=== PATIENT | female | born 1945 | race Caucasian/White ===

== ENCOUNTER → 2016-07-18 | Outpatient (CLI) | payer MEDICARE, OTHER ==
[~2016-07-18] MED LIST: ATEN100T88 PO; CITA20TA4 PO; LISI1TAB PO; LOVA20TA2 PO; SITA100T PO; SLMFT1E INH
--- OUTSIDE RECORDS SUMMARY | 2016-07-18 13:31 | XMS REPORT | Continuity of Care Document ---
Author Author Formerly [facility] Address Unknown Phone Unavailable Allergies Active Description Code Type Severity Reaction Onset Reported/Identified Relationship to Patient Clinical Status Yes PENICILLIN PENICILLIN Mild N/A 07/04/2012 Medications Problems Date Dx Coded Attending Type Code Diagnosis Diagnosed By 03/19/2013 RENAN CORBIN MISHEL Jones V04.81 FLU SHOT 09/29/2014 JEFFREY ELIZONDO EQUIPMENT TESTER Ot 959.7 09/29/2014 JEFFREY ELIZONDO EQUIPMENT TESTER Ot E849.6 09/29/2014 JEFFREY ELIZONDO EQUIPMENT TESTER Ot E888.9 10/16/2014 JEFFREY ELIZONDO EQUIPMENT TESTER Ot 959.7 10/16/2014 JEFFREY ELIZONDO EQUIPMENT TESTER Ot E849.6 10/16/2014 JEFFREY ELIZONDO EQUIPMENT TESTER Ot E888.9 10/22/2014 DOROTEO FLOWERS, MARI P Ot 836.0 10/22/2014 DOROTEO FLOWERS, MARI P Ot 844.1 10/22/2014 DOROTEO FLOWERS, MARI P Ot 924.11 10/22/2014 DOROTEO FLOWERS, MARI P Ot E000.8 10/22/2014 DOROTEO FLOWERS, MARI P Ot E885.9 10/25/2014 DOROTEO FLOWERS, MARI P Ot 836.0 10/25/2014 DOROTEO FLOWERS, MARI P Ot 844.1 10/25/2014 DOROTEO FLOWERS, MARI P Ot 924.11 10/25/2014 DOROTEO FLOWERS, MARI P Ot E000.8 10/25/2014 MARI SADLER MD Ot E885.9 Procedures Code Description Performed By Performed On G0008 FLU ADMINISTRATION (MEDICARE ONLY) 03/19/2013 Results Encounters ACCT No. Visit Date/Time Discharge Status Pt. Type Provider Facility Loc./Unit Complaint [id number] 03/19/2013 15:31:00 03/19/2013 23: 59:59 CLS Outpatient MISHEL URRUTIA DO
--- NOTE | 2016-07-18 15:12 | Diagnostic Imaging Report ---
PROCEDURE: MRI lumbar spine. TECHNIQUE: Multiplanar, multisequence MRI of the lumbar spine was performed without contrast. INDICATION: Back pain and left leg radiculopathy. FINDINGS: There is satisfactory alignment of the posterior spinal line. The vertebral body heights are preserved. There is multilevel bone marrow edema along the endplates of mid and lower lumbar spine levels reactive to disc disease with no suspicious marrow lesion identified. There is disc desiccation at all levels. There is slight disc height loss at L2/3 level. T12/L1: There is no significant disc herniation. No spinal canal or foraminal stenosis is seen. L1/2: There is a minimal disc bulge with no spinal canal or foraminal stenosis. There is mild facet hypertrophy. L2/3: There is a mild disc bulge and mild to moderate facet hypertrophy. There is no central canal, lateral recess or foraminal stenosis however. L3/L4: There is no disc herniation. There is moderate facet hypertrophy. No central canal, lateral recess or foraminal stenosis. L4/5: There is a disc bulge and moderate to severe facet arthropathy. There is central canal stenosis of mild to moderate degree reducing the AP dimension of the spinal canal to 8.6 mm. There is also lateral recess stenosis of moderate degree on the left side and minimal lateral recess stenosis on the right. The neural foramina demonstrate mild bilateral stenosis. L5/S1: There is a minimal disc bulge and mild to moderate facet arthropathy. No central canal stenosis. The lateral recess demonstrate mild stenosis on the left and no significant stenosis on the right side. The foramina demonstrate moderate to severe stenosis on the left and mild to moderate stenosis on the right side. IMPRESSION: Generally mild to moderate facet and disc degenerative changes most prominent in the lower lumbar spine. At L4/5 level, there is moderate left lateral recess stenosis and there is moderate to severe foraminal stenosis on the left at L5/S1. Other findings as above. Dictated by: Dictated on workstation # [id number]
== END ==
LOC: RAD 13:28
PROVIDERS: ATTEND Internal Medicine
DX: M54.16 Radiculopathy, lumbar region (principal)
CPT/HCPCS: 72148

== ENCOUNTER 2017-01-27 13:50 | Outpatient (RCR) | payer MEDICARE, OTHER | END 2017-01-27 14:44 | disposition home or self-care (01) | PROVIDERS: ATTEND Internal Medicine | DX: M54.5 Low back pain (principal); R53.83 Other fatigue ==

== ENCOUNTER → 2018-06-02 | Outpatient (CLI) | payer MEDICARE, OTHER ==
--- NOTE | 2018-06-02 13:48 | Diagnostic Imaging Report ---
INDICATION: Fall, rib injury, pain. COMPARISON: None. EXAMINATION: Three views of the right wrist were obtained. FINDINGS: No fracture or osseous lesion. There is no pneumothorax or effusion. IMPRESSION: Negative right rib series. Dictated by: Dictated on workstation # [id number]
--- NOTE | 2018-06-02 13:50 | Diagnostic Imaging Report ---
INDICATION: Fall. COMPARISON: None. EXAMINATION: Single view of the pelvis was obtained. FINDINGS: No fracture or dislocation. Articular surfaces are age-appropriate. No osseous lesion. IMPRESSION: No fracture identified. Dictated by: Dictated on workstation # [id number]
== END ==
LOC: RAD 12:19
PROVIDERS: ATTEND Internal Medicine
DX: S29.9XXA Unspecified injury of thorax, initial encounter (principal); S39.93XA Unspecified injury of pelvis, initial encounter; W19.XXXA Unspecified fall, initial encounter
CPT/HCPCS: 71100; 72170

== ENCOUNTER 2018-09-14 16:31 | Inpatient (IN) | payer MEDICARE, OTHER ==
[~2018-09-14] VITALS: Ht 160 cm; Wt 66.5 kg
--- NOTE | 2018-09-14 17:11 | ED Abdominal Pain ---
General Chief Complaint: Abdominal/GI Problems Stated Complaint: R SIDE PAIN Nursing Triage Note: Pt c/o R sided abdominal pain and vomiting after eating. Symptoms have persisted for three days. Pt reports last BM approximately two days ago. Sepsis Screen: No Definite Risk Source of Information: Patient Exam Limitations: No Limitations History of Present Illness Date Seen by Provider: September 14, 2018 Time Seen by Provider: 17:11 Initial Comments 72-year-old female who presents to the emergency room with complaints of generalized abdominal cramping, nausea, vomiting after eating for the past 3-4 days. She denies fevers, trouble urinating, abnormal bowel movements. She is a patient of Dr. Corado Timing/Duration: 3-4 Days Severity/Quality: Cramping Location: Generalized Abdomen Radiation: No Radiation Associated Symptoms: Nausea/Vomiting Allergies and Home Medications Allergies Uncoded Allergies: PENICILLIN (Allergy, Mild, 07/04/12) Home Medications Atenolol 100 Mg Tablet, 1 EACH PO DAILY, (Reported) Citalopram Hydrobromide 20 Mg Tablet, 20 MG PO DAILY, (Reported) Hctz/Lisinopril 1 Each Tablet, 1 EACH PO DAILY, (Reported) Lovastatin 20 Mg Tablet, 1 EACH PO DAILY WITH SUPPER, (Reported) Salmeterol Xinaf/Fluticasone 1 Diskus Inhp, 0 INH Q12HR, (Reported) 1 PUFF Sitagliptin Phosphate 100 Mg Tablet, 1 EACH PO DAILY, (Reported) Patient Home Medication List Home Medication List Reviewed: Yes Review of Systems Review of Systems Constitutional: see HPI; No chills, No fever Gastrointestinal: See HPI, Abdominal Pain, Nausea, Vomiting All Other Systems Reviewed Negative Unless Noted: Yes Past Pxwbebr-Wycrwq-Hgehpv Hx Past Med/Social Hx: Reviewed Nursing Past Med/Soc Hx Patient Social History Alcohol Use: Denies Use Recreational Drug Use: No Smoking Status: Never a Smoker 2nd Hand Smoke Exposure: No Recent Foreign Travel: No Contact w/Someone Who Travel: No Recent Infectious Disease Expo: No Recent Hopitalizations: No Past Medical History Surgeries: No Respiratory: Yes (ASTHMA) Asthma Cardiac: No Female Reproductive Disorders: Ovarian Cyst Genitourinary: Yes Gastrointestinal: No Musculoskeletal: No Endocrine: Yes HEENT: No Cancer: No Psychosocial: No Blood Disorders: No Adverse Reaction/Blood Tranf: No Family Medical History Reviewed Nursing Family Hx Physical Exam Vital Signs Vital Signs - First Documented 5/17/19 16:34 Temp 98.2 Pulse 83 Resp 18 B/P (MAP) 176/89 (118) Pulse Ox 99 O2 Delivery Simple Mask Capillary Refill : Less Than 3 Seconds Height/Weight/BMI Height: 5'3.00" Weight: 160lbs. oz. 72.527665wb; BMI Method:Stated General Appearance: WD/WN, no apparent distress Respiratory: chest non-tender, lungs clear, normal breath sounds, no respiratory distress, no accessory muscle use Cardiovascular: normal peripheral pulses, regular rate, rhythm, no edema, no gallop, no JVD, no murmur Gastrointestinal: normal bowel sounds, non tender, soft, no organomegaly, no pulsatile mass Extremities: normal capillary refill Neurologic/Psychiatric: alert, normal mood/affect, oriented x 3 Skin: normal color, warm/dry Progress/Results/Core Measures Results/Orders Lab Results Laboratory Tests Test 09/14/18 17:10 Range/Units White Blood Count 9.6 4.3-11.0 10^3/uL Red Blood Count 4.66 4.35-5.85 10^6/uL Hemoglobin 13.2 11.5-16.0 G/DL Hematocrit 38 35-52 % Mean Corpuscular Volume 82 80-99 FL Mean Corpuscular Hemoglobin 28 25-34 PG Mean Corpuscular Hemoglobin Concent 35 32-36 G/DL Red Cell Distribution Width 13.1 10.0-14.5 % Platelet Count 347 130-400 10^3/uL Mean Platelet Volume 11.0 H 7.4-10.4 FL Neutrophils (%) (Auto) 62 42-75 % Lymphocytes (%) (Auto) 22 12-44 % Monocytes (%) (Auto) 14 H 0-12 % Eosinophils (%) (Auto) 1 0-10 % Basophils (%) (Auto) 1 0-10 % Neutrophils # (Auto) 6.0 1.8-7.8 X 10^3 Lymphocytes # (Auto) 2.1 1.0-4.0 X 10^3 Monocytes # (Auto) 1.4 H 0.0-1.0 X 10^3 Eosinophils # (Auto) 0.1 0.0-0.3 10^3/uL Basophils # (Auto) 0.1 0.0-0.1 10^3/uL Urine Color YELLOW Urine Clarity CLEAR Urine pH 5 5-9 Urine Specific [place] 1.010 L 1.016-1.022 Urine Protein 3+ H NEGATIVE Urine Glucose (UA) 2+ H NEGATIVE Urine Ketones NEGATIVE NEGATIVE Urine Nitrite NEGATIVE NEGATIVE Urine Bilirubin NEGATIVE NEGATIVE Urine Urobilinogen NORMAL NORMAL MG/DL Urine Leukocyte Esterase 2+ H NEGATIVE Urine RBC (Auto) 1+ H NEGATIVE Urine RBC 0-2 /HPF Urine WBC 2-5 /HPF Urine Squamous Epithelial Cells 5-10 /HPF Urine Crystals NONE /LPF Urine Bacteria TRACE /HPF Urine Casts NONE /LPF Urine Mucus NEGATIVE /LPF Urine Culture Indicated NO Sodium Level 130 L 135-145 MMOL/L Potassium Level 2.8 L 3.6-5.0 MMOL/L Chloride Level 94 L 98-107 MMOL/L Carbon Dioxide Level 21 21-32 MMOL/L Anion Gap 15 H 5-14 MMOL/L Blood Urea Nitrogen 24 H 7-18 MG/DL Creatinine 2.55 H 0.60-1.30 MG/DL Estimat Glomerular Filtration Rate 19 BUN/Creatinine Ratio 9 Glucose Level 169 H 70-105 MG/DL Calcium Level 7.6 L 8.5-10.1 MG/DL Corrected Calcium 8.5-10.1 MG/DL Total Bilirubin 0.5 0.1-1.0 MG/DL Aspartate Amino Transf (AST/SGOT) 14 5-34 U/L Alanine Aminotransferase (ALT/SGPT) 8 0-55 U/L Alkaline Phosphatase 55 40-136 U/L Total Protein 7.5 6.4-8.2 GM/DL Albumin 4.6 H 3.2-4.5 GM/DL Amylase Level 78 25-125 U/L Lipase 57 8-78 U/L My Orders Orders - PHILIP FORDE Comprehensive Metabolic Panel (09/14/18 17:31) Lipase (09/14/18 17:31) Amylase (09/14/18 17:31) Ua Culture If Indicated (09/14/18 17:31) Ed Iv/Invasive Line Start (09/14/18 17:31) Cbc With Automated Diff (09/14/18 17:31) Ns Iv 1000 Ml (Sodium Chloride 0.9%) (09/14/18 18:30) Potassium Cl 10meq/50ml Ivpb (Kcl 10 Meq (5/17/19 18:30) Acute Abd Series (09/14/18 19:07) Medications Given in ED Current Medications Medications Dose Ordered Sig/Juliano Route Start Time Stop Time Status Last Admin Dose Admin Potassium Chloride 50 ml @ 50 mls/hr ONCE ONCE IV 09/14/18 18:30 09/14/18 19:29 DC 09/14/18 18:52 50 MLS/HR Vital Signs/I&O 09/14/18 16:34 Temp 98.2 Pulse 83 Resp 18 B/P (MAP) 176/89 (118) Pulse Ox 99 O2 Delivery Simple Mask Blood Pressure Mean: 118 Progress Progress Note : Time: 19:50 Progress Note I have discussed the case with Dr.Neuguin Morse corrugator operator helper at this time. He believes that given the patient's chronic kidney disease simple hydration and electrolyte replacement bring her back to her baseline. 20 005. I have discussed the case with Dr. Raines and she agrees to admit the patient to her services as an observation status. IV fluids at 100 mL an hour and repeat labs in the morning. Patient agrees with plan of care. Departure Communication (Admissions) Time/Spoke to Admitting Phy: 20:06 Dr. Raines Impression Primary Impression: Nausea and vomiting Additional Impressions: Chronic kidney disease Dehydration Disposition: ADMITTED INPATIENT Condition: Stable/Unchanged Admissions Decision to Admit Reason: Admit from ER (General) Decision to Admit/Date: September 14, 2018 Time/Decision to Admit Time: 20:08 Departure-Patient Inst. Referrals: SHANE CORADO DO (PCP/Family) Primary Care Physician PHILIP FORDE September 14, 2018 17:11
[2018-09-14 17:36] LABS: BASOPHILS # (AUTO) 0.1 10^3/uL (0.0-0.1); BASOPHILS % (AUTO) 1 % (0-10); EOSINOPHILS # (AUTO) 0.1 10^3/uL (0.0-0.3); EOSINOPHILS % (AUTO) 1 % (0-10); HEMATOCRIT 38 % (35-52); HEMOGLOBIN 13.2 G/DL (11.5-16.0); LYMPHOCYTES # (AUTO) 2.1 X 10^3 (1.0-4.0); LYMPHOCYTES % (AUTO) 22 % (12-44); MEAN CORPUSCULAR HEMOGLOBIN 28 PG (25-34); MEAN CORPUSCULAR HGB CONC 35 G/DL (32-36); MEAN CORPUSCULAR VOLUME 82 FL (80-99); MONOCYTES # (AUTO) 1.4 X 10^3 (0.0-1.0); MONOCYTES % (AUTO) 14 % (0-12); NEUTROPHILS % (AUTO) 62 % (42-75); PLATELET COUNT 347 10^3/uL (130-400); RED CELL DISTRIBUTION WIDTH 13.1 % (10.0-14.5); WHITE BLOOD COUNT 9.6 10^3/uL (4.3-11.0)
[2018-09-14 17:40] LABS: BILIRUBIN,URINE NEGATIVE (NEGATIVE); CLARITY,URINE CLEAR; COLOR,URINE YELLOW; GLUCOSE, URINE (UA) 2+ (NEGATIVE); KETONES,URINE NEGATIVE (NEGATIVE); LEUKOCYTE ESTERASE ,URINE 2+ (NEGATIVE); NITRITE,URINE NEGATIVE (NEGATIVE); PH,URINE 5 (5-9); PROTEIN,URINE 3+ (NEGATIVE); UROBILINOGEN,URINE NORMAL (NORMAL)
[2018-09-14 17:48] LABS: BACTERIA,URINE TRACE /HPF; RBC,URINE 0-2 /HPF
[2018-09-14 17:49] LABS: ALANINE AMINOTRANSFERASE 8 U/L (0-55); ALBUMIN 4.6 GM/DL (3.2-4.5); ALKALINE PHOSPHATASE 55 U/L (40-136); AMYLASE 78 U/L (25-125); BILIRUBIN,TOTAL 0.5 MG/DL (0.1-1.0); BUN/CREATININE RATIO 9; CALCIUM 7.6 MG/DL (8.5-10.1); CARBON DIOXIDE 21 MMOL/L (21-32); CHLORIDE 94 MMOL/L (98-107); CREATININE SERUM 2.55 MG/DL (0.60-1.30); GFR ESTIMATED 19; GLUCOSE 169 MG/DL (70-105); LIPASE 57 U/L (8-78); POTASSIUM 2.8 MMOL/L (3.6-5.0); SODIUM 130 MMOL/L (135-145); TOTAL PROTEIN 7.5 GM/DL (6.4-8.2)
[2018-09-14] MEDS ORDERED: NS IV 1000 ML 1,000 ML IV SCH (18:30)
[2018-09-14] MEDS ORDERED: POTASSIUM CL 10MEQ/50ML IVPB 50 ML IV ONE (18:30)
--- NOTE | 2018-09-14 19:47 | Diagnostic Imaging Report ---
INDICATION: Abdominal pain and vomiting. EXAMINATION: Four views of the abdomen were obtained. FINDINGS: The heart size is normal. Lungs are clear. There is no pleural effusion or pneumothorax. Bowel gas pattern is nonspecific. There is no free air. 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 There are no other abnormal abdominal calcifications IMPRESSION: 1. No acute cardiopulmonary abnormality. 2. Nonspecific bowel gas pattern. 3. Questionable calcified splenic artery aneurysm. Dictated by: Dictated on workstation # [id number]
[2018-09-14] MEDS ORDERED: KCL 20 MEQ TAB (K-DUR) PO ONE (20:15)
--- OUTSIDE RECORDS SUMMARY | 2018-09-14 20:25 | XMS REPORT | Clinical Summary ---
Author Author [facility] Address Unknown Phone Unavailable Care Team Providers Care Field Professional Name Role Phone PP Unavailable Allergies Not on File Medications Not on file Active Problems Not on file Social History Date Tobacco Use Types Packs/Day Years Used Never Assessed Sex Assigned at Date Recorded Not on file Industry Job Start Date Occupation Not on file Not on file Not on file Travel End Travel History Travel Start No recent travel history available. Plan of Treatment Health Maintenance Due Date Last Done Comments Hepatitis C Screening 1945 DTaP,Tdap,and Td Vaccines 1965 (1 - Tdap) Breast Cancer 1996 Screening-Mammogram Colon Cancer Screening 1996 Zoster Recombinant 1996 Vaccine (RZV,Shingrix) (1 of 2 - [facility] 2 Dose Standard) Pneumo-Adult (1 of 2 - 12/10/2011 PCV13) Influenza Vaccine (Season 12/30/2018 Ended) Results Not on filefrom Last 3 Months
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
[2018-09-14 20:54] VITALS: BP 152/74
--- NOTE | 2018-09-14 20:54 | NUR ---
SHIRAZ ÁLVAREZ admitted to room 422-1, with an admitting diagnosis of DEHDRATION, on 09/14/18 from ED via WHEELCHAIR, accompanied by STAFF.SHIRAZ ÁLVAREZ introduced to surroundings, call light, bed controls, phone, TV, temperature control, lights, meal times, smoking policy, visitor policy, side rail policy, bathrooms and showers. Patient Rights given to patient in the handbook. SHIRAZ ÁLVAREZ verbalizes understanding that [facility] is not responsible for the loss or damage to any personal effects or valuables that are kept in the patients posession during their hospitalization.
[2018-09-14] MEDS ORDERED: ONDANSETRON 4 MG/2 ML (SDV) Z0FRAN IV PRN (22:00)
--- NOTE | 2018-09-14 22:19 | NUR ---
PT DOESN'T HAVE AN UPDATED MEDICATION LIST.
[2018-09-14] MEDS: NS IV 1000 ML 1,000 ML IV SCH (22:49)
[2018-09-15] VITALS: BP 150/66
[2018-09-15 04:00] VITALS: BP 159/70
[2018-09-15 05:18] LABS: BASOPHILS # (AUTO) 0.1 10^3/uL (0.0-0.1); BASOPHILS % (AUTO) 1 % (0-10); EOSINOPHILS # (AUTO) 0.1 10^3/uL (0.0-0.3); EOSINOPHILS % (AUTO) 1 % (0-10); HEMATOCRIT 35 % (35-52); LYMPHOCYTES # (AUTO) 1.4 X 10^3 (1.0-4.0); LYMPHOCYTES % (AUTO) 21 % (12-44); MEAN CORPUSCULAR HEMOGLOBIN 28 PG (25-34); MEAN CORPUSCULAR HGB CONC 34 G/DL (32-36); MEAN CORPUSCULAR VOLUME 83 FL (80-99); MEAN PLATELET VOLUME 10.7 FL (7.4-10.4); MONOCYTES # (AUTO) 0.9 X 10^3 (0.0-1.0); MONOCYTES % (AUTO) 13 % (0-12); NEUTROPHILS # (AUTO) 4.3 X 10^3 (1.8-7.8); NEUTROPHILS % (AUTO) 64 % (42-75); PLATELET COUNT 267 10^3/uL (130-400); RED CELL DISTRIBUTION WIDTH 12.8 % (10.0-14.5); WHITE BLOOD COUNT 6.6 10^3/uL (4.3-11.0)
[2018-09-15 05:40] LABS: ALBUMIN 3.7 GM/DL (3.2-4.5); BILIRUBIN,TOTAL 0.5 MG/DL (0.1-1.0); CALCIUM 8.9 MG/DL (8.5-10.1); CREATININE SERUM 2.09 MG/DL (0.60-1.30); POTASSIUM 3.1 MMOL/L (3.6-5.0)
[2018-09-15] MEDS: NS IV 1000 ML 1,000 ML IV SCH ×2 (07:52→18:05)
[2018-09-15 08:00] VITALS: BP 154/70
[2018-09-15 12:00] VITALS: BP 179/69
--- NOTE | 2018-09-15 13:17 | History & Physical-Hospitalist ---
History of Present Illness HPI/Chief Complaint This is a 72-year-old white female who presents to the emergency room with a 2-3 day history of fatigue, nausea, and vomiting. Her GFR was found to be 19 and she appeared to be very fatigued and ill. Her case was discussed with the guest services coordinator on-call Lito who recommended IV fluids and observation. she says that she's feeling better this morning. She is a difficult historian. She denies specific complaints of pain. Source: patient Exam Limitations: other Date Seen 09/15/18 Time Seen by a Provider: 11:00 Attending Physician Ivet Raines MD PCP Morales Corado DO Referring Physician Date of Admission September 14, 2018 at 20:00 Home Medications & Allergies Home Medications Reviewed patient Home Medication Reconciliation performed by pharmacy medication reconciliations tower technician and/or nursing. Patients Allergies have been reviewed. Allergies Allergies Uncoded Allergies PENICILLIN ( Allergy, Mild, 07/04/12) Past Qwzbkji-Wcoolm-Exumlw Hx Past Med/Social Hx: Reviewed Nursing Past Med/Soc Hx Patient Social History Marrital Status: Employed/Student: retired Alcohol Use: Denies Use Recreational Drug Use: No Smoking Status: Never a Smoker 2nd Hand Smoke Exposure: No Recent Foreign Travel: No Contact w/other who traveled: No Recent Hopitalizations: No Recent Infectious Disease Expo: No Past Medical History : No Female Reproductive Disorders: Ovarian Cyst History of Blood Disorders: No Adverse Reaction to Blood Coles: No Family History Reviewed Nursing Family Hx Review of Systems Constitutional: see HPI Cardiovascular: no symptoms reported Gastrointestinal: nausea, vomiting Skin: no symptoms reported Psychiatric/Neurological: No Symptoms Reported Physical Exam Physical Exam Vital Signs Vital Signs - First Documented 09/14/18 16:34 Temp 98.2 Pulse 83 Resp 18 B/P (MAP) 176/89 (118) Pulse Ox 99 O2 Delivery Simple Mask Capillary Refill : Less Than 3 Seconds Height, Weight, BMI Height: 5'3.00" Weight: 146lbs. 9.0oz. [id number]; 26.0 BMI Method:Stated General Appearance: No Apparent Distress HEENT: Normal ENT Inspection Neck: Non Tender, Supple Respiratory: Chest Non Tender, Lungs Clear, Normal Breath Sounds, No Accessory Muscle Use, No Respiratory Distress Cardiovascular: Regular Rate, Rhythm, No Gallop, No Murmur Gastrointestinal: Normal Bowel Sounds, Non Tender, Soft Rectal: Deferred Back: Normal Inspection Extremity: Normal Capillary Refill, Normal Range of Motion, No Calf Tenderness Neurologic/Psychiatric: Alert, Oriented x3 Skin: Normal Color Results Results/Procedures Labs Laboratory Tests 09/14/18 17:10 09/15/18 05:03 Patient resulted labs reviewed. Assessment/Plan Admission Diagnosis Nausea and vomiting of uncertain etiology possible viral Acute renal failure Chronic renal failure stage IV kidney disease Hypokalemia Dehydration HTN Plan to admit for IV fluids and further evaluation Admission Status: Observation Diagnosis/Problems Diagnosis/Problems (1) Nausea and vomiting Status: Acute (2) Dehydration Status: Acute (3) Chronic kidney disease Status: Acute Qualifiers: Chronic kidney disease stage: stage 4 (severe) Qualified Codes: N18.4 - Chronic kidney disease, stage 4 (severe) Clinical Quality Measures DVT/VTE Risk/Contraindication: Risk Factor Score Per Nursin RFS Level Per Nursing on Admit: 3=High Copy Copies To 1: MORALES CORADO KATHLEEN M MD September 15, 2018 13:16
[2018-09-15 15:45] VITALS: BP 147/74
[2018-09-15 20:00] VITALS: BP 144/67
[2018-09-15] MEDS: RT-ADVAIR HFA 45/21 MCG PER PUFF IH SCH (20:23)
[2018-09-15] MEDS ORDERED: SIMvastatin 10 MG (ZOCOR) TAB PO SCH (21:00)
[2018-09-16] VITALS: BP 150/70
[2018-09-16] MEDS: NS IV 1000 ML 1,000 ML IV SCH (03:54)
[2018-09-16 04:00] VITALS: BP 177/70
[2018-09-16 05:24] LABS: BASOPHILS % (AUTO) 1 % (0-10); EOSINOPHILS # (AUTO) 0.1 10^3/uL (0.0-0.3); EOSINOPHILS % (AUTO) 2 % (0-10); HEMATOCRIT 37 % (35-52); HEMOGLOBIN 12.5 G/DL (11.5-16.0); LYMPHOCYTES # (AUTO) 1.3 X 10^3 (1.0-4.0); LYMPHOCYTES % (AUTO) 20 % (12-44); MEAN CORPUSCULAR HEMOGLOBIN 28 PG (25-34); MEAN CORPUSCULAR HGB CONC 34 G/DL (32-36); MEAN CORPUSCULAR VOLUME 83 FL (80-99); MEAN PLATELET VOLUME 10.9 FL (7.4-10.4); MONOCYTES # (AUTO) 0.9 X 10^3 (0.0-1.0); MONOCYTES % (AUTO) 14 % (0-12); NEUTROPHILS # (AUTO) 4.1 X 10^3 (1.8-7.8); NEUTROPHILS % (AUTO) 63 % (42-75); PLATELET COUNT 269 10^3/uL (130-400); WHITE BLOOD COUNT 6.5 10^3/uL (4.3-11.0)
[2018-09-16 05:47] LABS: ALBUMIN 3.6 GM/DL (3.2-4.5); BILIRUBIN,TOTAL 0.4 MG/DL (0.1-1.0); CALCIUM 8.9 MG/DL (8.5-10.1); CREATININE SERUM 1.79 MG/DL (0.60-1.30); TOTAL PROTEIN 5.8 GM/DL (6.4-8.2)
[2018-09-16] MEDS: RT-ADVAIR HFA 45/21 MCG PER PUFF IH SCH (06:45)
[2018-09-16 08:00] VITALS: BP 175/75
[2018-09-16] MEDS ORDERED: lisINopril 20 MG (PRINIVIL) TABLET PO SCH (09:00)
[2018-09-16] MEDS ORDERED: HYDROCHLOROTHIAZIDE 12.5 MG (HCTZ) CAP PO SCH (09:00)
[2018-09-16] MEDS ORDERED: ATENOLOL 50 MG (TENORMIN) TAB PO SCH (09:00)
--- NOTE | 2018-09-16 11:43 | Discharge Summary-Hospitalist ---
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 Hypokalemia Dehydration HTN Plan to admit for IV fluids and further evaluation Discharge Diagnosis Dehydration Nausea and vomiting Acute renal failure Chronic renal insufficiency Hypertension hypokalemia Hyperglycemia Monocytosis (1) Nausea and vomiting Status: Resolved (2) Dehydration Status: Resolved (3) Chronic kidney disease Status: Acute (4) Hypokalemia Status: Acute Discharge Summary Procedures/Consulations None Discharge Physical Exam Allergies: Uncoded Allergies: PENICILLIN (Allergy, Mild, 07/04/12) Vitals & I&Os Vital Signs Date Time Temp Pulse Resp B/P (MAP) Pulse Ox O2 Delivery O2 Flow Rate FiO2 09/16/18 08:42 Room Air 09/16/18 08:00 98.0 78 18 175/75 (108) 99 09/16/18 06:46 21 General Appearance: No Apparent Distress, WD/WN HEENT: Normal ENT Inspection, Pharynx Normal Respiratory: Chest Non Tender, Lungs Clear, Normal Breath Sounds, No Accessory Muscle Use, No Respiratory Distress Cardiovascular: Regular Rate, Rhythm, No Gallop, No Murmur Gastrointestinal: Normal Bowel Sounds, No Organomegaly, Non Tender, Soft Extremity: Normal Inspection, Normal Range of Motion, Non Tender, No Calf Tenderness, No Pedal Edema Skin: Normal Color, Warm/Dry Neurologic/Psychiatric: Alert, Oriented x3, No Motor/Sensory Deficits, Normal Mood/Affect, 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 She had aggressive fluid resuscitation with normal saline and her creatinine corrected down to almost 1.8. Potassium was replaced. The patient was eating and drinking normally and felt well at the time of discharge. She is counseled to follow-up with her special education itinerant teacher. In addition her blood sugars were running slightly elevated. Hemoglobin A1c is pending at the time of this discharge. In addition it was noted that she had a persistent monocytosis. UA showed proteinuria. Patient is advised to follow up with her special education itinerant teacher for repeat 24-hour urine for creatinine clearance and protein electrophoresis. Labs (last 24 hrs) Laboratory Tests 09/16/18 04:52: White Blood Count 6.5, Red Blood Count 4.42, Hemoglobin 12.5, Hematocrit 37, Mean Corpuscular Volume 83, Mean Corpuscular Hemoglobin 28, Mean Corpuscular Hemoglobin Concent 34, Red Cell Distribution Width 13.0, Platelet Count 269, Mean Platelet Volume 10.9H, Neutrophils (%) (Auto) 63, Lymphocytes (%) (Auto) 20, Monocytes (%) (Auto) 14H, Eosinophils (%) (Auto) 2, Basophils (%) (Auto) 1, Neutrophils # (Auto) 4.1, Lymphocytes # (Auto) 1.3, Monocytes # (Auto) 0.9, Eosinophils # (Auto) 0.1, Basophils # (Auto) 0.0, Sodium Level 140, Potassium L evel 3.0L, Chloride Level 108H, Carbon Dioxide Level 19L, Anion Gap 13, Blood Urea Nitrogen 17, Creatinine 1.79H, Estimat Glomerular Filtration Rate 28, BUN/Creatinine Ratio 9, Glucose Level 186H, Calcium Level 8.9, Corrected Calcium 9.2, Total Bilirubin 0.4, Aspartate Amino Transf (AST/SGOT) 12, Alanine Aminotransferase (ALT/SGPT) 8, Alkaline Phosphatase 43, Total Protein 5.8L, Albumin 3.6 Patient resulted labs reviewed. Pending Labs Laboratory Tests 09/16/18 04:52: White Blood Count 6.5, Red Blood Count 4.42, Hemoglobin 12.5, Hematocrit 37, Mean Corpuscular Volume 83, Mean Corpuscular Hemoglobin 28, Mean Corpuscular Hemoglobin Concent 34, Red Cell Distribution Width 13.0, Platelet Count 269, Mean Platelet Volume 10.9, Neutrophils (%) (Auto) 63, Lymphocytes (%) (Auto) 20, Monocytes (%) (Auto) 14, Eosinophils (%) (Auto) 2, Basophils (%) (Auto) 1, Neutrophils # (Auto) 4.1, Lymphocytes # (Auto) 1.3, Monocytes # (Auto) 0.9, Eosinophils # (Auto) 0.1, Basophils # (Auto) 0.0, Sodium Level 140, Potassium Level 3.0, Chloride Level 108, Carbon Dioxide Level 19, Anion Gap 13, Blood Urea Nitrogen 17, Creatinine 1.79, Estimat Glomerular Filtration Rate 28, BUN/Creatinine Ratio 9, Glucose Level 186, Calcium Level 8.9, Corrected Calcium 9.2, Total Bilirubin 0.4, Aspartate Amino Transf (AST/SGOT) 12, Alanine Aminotransferase (ALT/SGPT) 8, Alkaline Phosphatase 43, Total Protein 5.8, Albumin 3.6 Discussion & Recommendations Discharge Planning: <30 minutes discharge planning Discharge Home Medications: Active Scripts Active Reported Advair 100 Mcg/50 Mcg (Salmeterol Xinafoate/Fluticasone) 1 Diskus Inhp 0 INH Q12HR 1 PUFF Lovastatin 20 Mg (Lovastatin) 20 Mg Tablet 1 Each PO DAILY WITH SUPPER Lisinopril-Hctz 20-12.5 Mg Tab (HCTZ/Lisinopril) 1 Each Tablet 1 Each PO DAILY Tenormin 100 Mg (Atenolol) 100 Mg Tablet 1 Each PO DAILY Citalopram Hbr (Citalopram Hydrobromide) 20 Mg Tablet 20 Mg PO DAILY Januvia (Sitagliptin Phosphate) 100 Mg Tablet 1 Each PO DAILY Condition at discharge Stable Instructions to patient/family Please see electronic discharge instructions given to patient. Clinical Quality Measures DVT/VTE Risk/Contraindication: Risk Factor Score Per Nursin RFS Level Per Nursing on Admit: 3=High Copy Copies To 1: SHANE ELIZONDO DO Problem Qualifiers (1) Chronic kidney disease: Chronic kidney disease stage: stage 4 (severe) Qualified Codes: N18.4 - Chronic kidney disease, stage 4 (severe) MARSHA AQUINO MD September 16, 2018 11:43
[2018-09-16 12:00] VITALS: BP 187/72
[2018-09-16] MEDS ORDERED: KCL 20 MEQ TAB (K-DUR) PO SCH (12:00)
[2018-09-16 13:20] VITALS: BP 187/72
== END 2018-09-16 13:20 | disposition home or self-care (01) | DRG 641 ==
LOC: EDUNIT# 16:31 → ER 16:33 → 4TH 20:00 → UNDOADMOB 20:00 → 4TH 20:54 → INTOOBSV 09-15 16:21 → OBSVTOIN 09-15 16:21 → UNDODISIN 09-16 13:20
PROVIDERS: ADMIT Internal Medicine; ATTEND Internal Medicine
DX: E86.0 Dehydration (principal); B34.9 Viral infection, unspecified; I12.9 Hypertensive chronic kidney disease with stage 1 through stage 4 chronic kidney disease, or unspecified chronic kidney disease; N18.4 Chronic kidney disease, stage 4 (severe); N17.9 Acute kidney failure, unspecified; E87.6 Hypokalemia; R73.9 Hyperglycemia, unspecified; D72.821 Monocytosis (symptomatic); J45.909 Unspecified asthma, uncomplicated
CPT/HCPCS: 36415; 74022; 80053; 81000; 82150; 83036; 83690; 85025; 94640; 96361; 96365; G0378

== ENCOUNTER 2019-01-23 13:57 | Inpatient (IN) | payer MEDICARE, OTHER ==
[~2019-01-23] VITALS: Ht 157 cm; Wt 61.0 kg
[2019-01-23] MEDS ORDERED: NS IV 1000 ML 1,000 ML IV ONE (14:06)
--- NOTE | 2019-01-23 14:29 | ED General ---
General Chief Complaint: General Problems/Pain Stated Complaint: FEVER Nursing Triage Note: Pt to [facility] 5 with C/O RUQ abd pain, abnormal wt loss. Pt sent from Dr Freed office to get checked out. Nursing Sepsis Screen: No Definite Risk Source of Information: Patient Exam Limitations: No Limitations History of Present Illness Date Seen by Provider: Jan 23, 2019 Time Seen by Provider: 14:13 Initial Comments Here with report of right upper quadrant abdominal pain, weight loss, decreased appetite, decreased urination, reported fever at her doctor's office and overall not feeling well. Her doctor called to try to get direct admit but the admitting doctor for further she go through the emergency department due to concerns of history of chronic stage IV renal disease and history of GFR of 20. There is concerns about renal failure requiring dialysis due to reports of significant dehydration and tachycardia. She does arrive tachycardic. Apparently she did eat a little bit before coming and and is drinking okay. She states that she slipped in a room without her condition last night and that made her hot and not feel well. Does admit to the right upper quadrant abdominal pain that has been going on for some time. She has had difficulties over the last 10 weeks as her has been in the hospital. is out now on with her. They do report 30 pound weight loss over the last 5 weeks. Denies nausea or vomiting. Timing/Duration: Getting Worse, Other (5 weeks) Severity: Moderate Associated Systoms: No Chest Pain, No Cough, No Diaphoresis; Fever/Chills, Loss of Appetite; No Nausea/Vomiting, No Shortness of Air; Weakness Allergies and Home Medications Allergies Uncoded Allergies: PENICILLIN (Allergy, Mild, 07/04/12) Home Medications Atenolol 100 Mg Tablet, 1 EACH PO DAILY, (Reported) Citalopram Hydrobromide 20 Mg Tablet, 20 MG PO DAILY, (Reported) Hctz/Lisinopril 1 Each Tablet, 1 EACH PO DAILY, (Reported) Lovastatin 20 Mg Tablet, 1 EACH PO DAILY WITH SUPPER, (Reported) Salmeterol Xinaf/Fluticasone 1 Diskus Inhp, 0 INH Q12HR, (Reported) 1 PUFF Sitagliptin Phosphate 100 Mg Tablet, 1 EACH PO DAILY, (Reported) Patient Home Medication List Home Medication List Reviewed: Yes Review of Systems Review of Systems Constitutional: see HPI; No chills, No fever EENTM: no symptoms reported Respiratory: no symptoms reported Cardiovascular: no symptoms reported Gastrointestinal: see HPI, abdominal pain (RUQ), loss of appetite Genitourinary: see HPI, decreased output Musculoskeletal: No back pain; muscle weakness Skin: no symptoms reported Psychiatric/Neurological: See HPI; Denies Headache; Weakness All Other Systems Reviewed Negative Unless Noted: Yes Past Pgkxwhj-Qfbvgq-Navdxu Hx Past Med/Social Hx: Reviewed Nursing Past Med/Soc Hx Patient Social History Alcohol Use: Denies Use Recreational Drug Use: No Smoking Status: Never a Smoker 2nd Hand Smoke Exposure: No Recent Foreign Travel: No Contact w/Someone Who Travel: No Recent Infectious Disease Expo: No Recent Hopitalizations: No Physical Abuse: No Sexual Abuse: No Mistreated: No Fear: No Seasonal Allergies Seasonal Allergies: No Past Medical History Surgeries: No Respiratory: Yes (ASTHMA) Asthma Cardiac: No Neurological: No Female Reproductive Disorders: Ovarian Cyst Genitourinary: Yes Renal Failure Gastrointestinal: No Musculoskeletal: No Endocrine: Yes Diabetes, Insulin dep, Diabetes, Non-Insulin dep HEENT: No Cancer: No Psychosocial: No Integumentary: No Blood Disorders: No Adverse Reaction/Blood Tranf: No Physical Exam-Suspected Sepsis Physical Exam Vital Signs Vital Signs - First Documented 01/23/19 14:14 Temp 36.9 Pulse 109 Resp 19 B/P (MAP) 146/88 (107) Pulse Ox 99 O2 Delivery Room Air Capillary Refill : Less Than 3 Seconds Blood Pressure Mean: 107 Height, Weight, BMI Height: 5'3.00" Weight: 146lbs. 9.0oz. 66.751270yw; 23.00 BMI Method:Stated General Appearance: No Apparent Distress, Cachetic HEENT: PERRL/EOMI, Pharynx Normal Neck: Non Tender, Supple Respiratory: Lungs Clear, Normal Breath Sounds Cardiovascular: No Murmur, Tachycardia Gastrointestinal: Hepatomegaly, Tenderness (right upper quadrant) Back: Normal Inspection, No CVA Tenderness, No Vertebral Tenderness Extremity: Normal Range of Motion, Non Tender Neurologic/Psychiatric: Alert, Oriented x3 Skin: normal color, warm/dry Focused Exam Lactate Level 01/23/19 14:25: Lactic Acid Level 1.71 Lactic Acid Level Laboratory Tests Test 01/23/19 14:25 Lactic Acid Level 1.71 MMOL/L (0.50-2.00) Progress/Results/Core Measures Suspected Sepsis Recent Fever Within 48 Hours: No Infection Criteria Present: None New/Unexplained Altered Menta: No Sepsis Screen: No Definite Risk SIRS Temperature: Pulse: 109 Respiratory Rate: 19 Laboratory Tests 01/23/19 14:25: White Blood Count 6.5 Blood Pressure 146 /88 Mean: 107 01/23/19 14:25: Lactic Acid Level 1.71 Laboratory Tests 01/23/19 14:25: Creatinine 2.05H, INR Comment 1.0, Platelet Count 425H, Total Bilirubin 0.4 Results/Orders Lab Results Laboratory Tests Test 01/23/19 14:25 01/23/19 14:32 01/23/19 15:50 Range/Units White Blood Count 6.5 4.3-11.0 10^3/uL Red Blood Count 4.82 4.35-5.85 10^6/uL Hemoglobin 12.9 11.5-16.0 G/DL Hematocrit 41 35-52 % Mean Corpuscular Volume 84 80-99 FL Mean Corpuscular Hemoglobin 27 25-34 PG Mean Corpuscular Hemoglobin Concent 32 32-36 G/DL Red Cell Distribution Width 15.5 H 10.0-14.5 % Platelet Count 425 H 130-400 10^3/uL Mean Platelet Volume 10.9 H 7.4-10.4 FL Neutrophils (%) (Auto) 68 42-75 % Lymphocytes (%) (Auto) 19 12-44 % Monocytes (%) (Auto) 12 0-12 % Eosinophils (%) (Auto) 1 0-10 % Basophils (%) (Auto) 1 0-10 % Neutrophils # (Auto) 4.4 1.8-7.8 X 10^3 Lymphocytes # (Auto) 1.2 1.0-4.0 X 10^3 Monocytes # (Auto) 0.7 0.0-1.0 X 10^3 Eosinophils # (Auto) 0.1 0.0-0.3 10^3/uL Basophils # (Auto) 0.0 0.0-0.1 10^3/uL Prothrombin Time 13.7 12.2-14.7 SEC INR Comment 1.0 0.8-1.4 Activated Partial Thromboplast Time 27 24-35 SEC Sodium Level 135 135-145 MMOL/L Potassium Level 4.0 3.6-5.0 MMOL/L Chloride Level 100 98-107 MMOL/L Carbon Dioxide Level 21 21-32 MMOL/L Anion Gap 14 5-14 MMOL/L Blood Urea Nitrogen 32 H 7-18 MG/DL Creatinine 2.05 H 0.60-1.30 MG/DL Estimat Glomerular Filtration Rate 24 BUN/Creatinine Ratio 16 Glucose Level 184 H 70-105 MG/DL Lactic Acid Level 1.71 0.50-2.00 MMOL/L Calcium Level 9.7 8.5-10.1 MG/DL Corrected Calcium 9.8 8.5-10.1 MG/DL Total Bilirubin 0.4 0.1-1.0 MG/DL Aspartate Amino Transf (AST/SGOT) 14 5-34 U/L Alanine Aminotransferase (ALT/SGPT) 8 0-55 U/L Alkaline Phosphatase 51 40-136 U/L Total Protein 7.1 6.4-8.2 GM/DL Albumin 3.9 3.2-4.5 GM/DL Urine Color YELLOW Urine Clarity SLIGHTLY CLOUDY Urine pH 5 5-9 Urine Specific [place] 1.020 1.016-1.022 Urine Protein 3+ H NEGATIVE Urine Glucose (UA) NEGATIVE NEGATIVE Urine Ketones 1+ H NEGATIVE Urine Nitrite NEGATIVE NEGATIVE Urine Bilirubin NEGATIVE NEGATIVE Urine Urobilinogen NORMAL NORMAL MG/DL Urine Leukocyte Esterase 3+ H NEGATIVE Urine RBC (Auto) 1+ H NEGATIVE Urine RBC 2-5 H /HPF Urine WBC >100 H /HPF Urine Squamous Epithelial Cells 25-50 H /HPF Urine Crystals NONE /LPF Urine Bacteria MODERATE H /HPF Urine Casts PRESENT /LPF Urine Granular Casts 5-10 H /LPF Urine Mucus NEGATIVE /LPF Urine Culture Indicated CULTURE PENDING Ammonia 14 11-32 UMOL/L My Orders Orders - VAHID ABURTO MD Cbc With Automated Diff (01/23/19 14:06) Comprehensive Metabolic Panel (01/23/19 14:06) Blood Culture (01/23/19 14:06) Sputum Culture (01/23/19 14:06) Urinalysis (01/23/19 14:06) Urine Culture (01/23/19 14:06) Protime With Inr (01/23/19 14:06) Partial Thromboplastin Time (01/23/19 14:06) Chest 1 View, Ap/Pa Only (01/23/19 14:06) Ed Iv/Invasive Line Start (01/23/19 14:06) Ed Iv/Invasive Line Start (01/23/19 14:06) Vital Signs Adult Sepsis Patie Q15M (01/23/19 14:06) O2 (01/23/19 14:06) Remove Rings In Anticipation O (01/23/19 14:06) Lactic Acid Analyzer (01/23/19 14:06) Ed Iv/Invasive Line Start (01/23/19 14:06) Ns Iv 1000 Ml (Sodium Chloride 0.9%) (01/23/19 14:06) Ct Chest/Abdomen/Pelvis Wo (01/23/19 15:02) Ammonia (01/23/19 15:44) Ca 125 (01/23/19 16:41) Ceftriaxone For Iv Use (Rocephin For I (01/23/19 17:00) Medications Given in ED Current Medications Medications Dose Ordered Sig/Juliano Route Start Time Stop Time Status Last Admin Dose Admin Sodium Chloride 1,000 ml @ 0 mls/hr Q0M ONCE IV 01/23/19 14:06 01/23/19 14:07 DC 01/23/19 14:28 0 MLS/HR Vital Signs/I&O 01/23/19 14:14 Temp 36.9 Pulse 109 Resp 19 B/P (MAP) 146/88 (107) Pulse Ox 99 O2 Delivery Room Air Capillary Refill : Less Than 3 Seconds Blood Pressure Mean: 107 Progress Note : Progress Note Seen and evaluated. IV, labs, UA, chest x-ray, blood cultures and lactic acid ordered. Due to the noted hepatomegaly and recent weight loss, CT abdomen pelvis ordered. Due to stage IV kidney disease, this will be done without contrast. Normal saline 1 L bolus. Monitor patient. CT chest ordered after looking at the chest x-ray which was abnormal especially on the left. Monitor patient. 1547: I did discuss the case with Dr. Friedman after discussion with radiologist. Patient has what appears to be a large ovarian mass and cystic structure with significant abdominal ascites and large left pleural effusion and smaller right pleural effusion. Concerns for ovarian cancer. Dr. Friedman accepts patient for admission, inpatient status. She also has urinary tract infection with negative lactic acid so we will just treat with Rocephin and monitor this. I did discuss the case with Dr. Jerry at 1611 and he accepts patient for consult. Dr. Friedman is talked with Dr. Calvert. Patient will need thoracentesis as well as paracentesis. Dr. Jerry will work on the paracentesis. All findings and concerns were discussed with the patient and family who agree with admission. Rocephin 1 g IV ordered. I did talk with the patient and family for approximately 20 minutes regarding the diagnosis and also to discuss resuscitation status. At this time she would like to remain full code and the is aware. They are both also of the understanding that if she were to go into cardiac arrest and things did not look good, that is realistic in the approach regarding resuscitation and is not opposed to changing it as needed. Patient was in agreement. Admit, inpatient status. Patient and family agree with plan. Diagnostic Imaging Diagonstic Imaging: Xray Plain Films/CT/US/NM/MRI: chest Comments NAME: PREETISHIRAZ Talbert [facility] REC#: [id number] PT STATUS: REG ER : 1945 PHYSICIAN: VAHID ABURTO MD ADMIT DATE: 01/23/19/ER Signed Date of Exam: 01/23/19 CHEST 1 VIEW, AP/PA ONLY INDICATION: Right upper quadrant abdominal pain. TIME OF EXAM: 02:54 p.m. Correlation is made with prior chest from 09/14/2018. FINDINGS: The heart size is stable. Abnormal increased density in the left perihilar and left basilar region is noted. The right lung is clear. No pneumothorax is seen. IMPRESSION: Development of left perihilar and left basilar density since study from August. This may represent pneumonia and some associated basilar fluid. Follow-up after course of therapy is recommended to confirm clearing. Dictated by: Dictated on workstation # [id number] Dict: 01/23/19 1500 Trans: 01/23/19 1510 Interpreted by: NICOLETTE SMITH MD Electronically signed by: NICOLETTE SMITH MD 01/23/19 1510 Diagonstic Imaging: CT Plain Films/CT/US/NM/MRI: chest, abdomen, pelvis Comments [facility]. [place], [place] NAME: SHIRAZ ÁLVAREZ [facility] REC#: [id number] PT STATUS: REG ER : 1945 PHYSICIAN: VAHID ABURTO MD ADMIT DATE: 01/23/19/ER Draft Date of Exam:01/23/19 CT CHEST/ABDOMEN/PELVIS WO PROCEDURE: CT chest, abdomen, and pelvis without contrast. TECHNIQUE: Multiple contiguous axial images were obtained through the chest, abdomen, and pelvis without the use of intravenous contrast. Auto Exposure Controls were utilized during the CT exam to meet ALARA standards for radiation dose reduction. INDICATION: Abdominal pain. COMPARISON: There are no previous CT chest, abdomen and pelvis examinations available for comparison. FINDINGS: The plain film examination of the chest performed earlier today did note pneumonia/atelectasis and fluid involving the left lung base. On this exam there is indeed a large left pleural effusion. The effusion measures approximately 8.9 cm in maximum depth. There is also an effusion on the right measuring 3.6 cm in maximum depth. There is a small amount of associated atelectasis/infiltrate in each lower lobe again more so on the left. The lung apices are clear. The heart size is within normal limits. Coronary artery calcifications are noted. The aorta is not abnormally dilated. There is no obvious mediastinal or hilar adenopathy. The thyroid gland where visualized is generally unremarkable. There is no obvious breast mass. The images through the abdomen and pelvis show that there is a moderate to large amount of ascites. Furthermore the sections through the low pelvis do show that there is a 9.1 x 11.0 cm cystic mass with an associated 3.2 x 5.5 cm solid mass along its left lateral aspect. This appearance is worrisome for an ovarian neoplasm such as a cyst adenocarcinoma. There is no obvious omental caking but the ascites could also be related to the suspected ovarian neoplasm. The pleural effusions may also be sympathetic effusions. The urinary bladder is not well-distended and difficult to assess. The uterus is difficult to evaluate but is not enlarged. The appendix was not well-visualized but there are no indirect signs of acute appendicitis. The liver does not seem to be enlarged. The spleen is within normal limits. The suspected calcified splenic aneurysm seen on the acute abdomen series exam of 09/14/2018 is again visualized. The pancreas, the adrenals, the kidneys, the gallbladder, the aorta and the inferior vena cava show no sign of an acute abnormality. The stomach is partially filled with particulate matter and difficult to assess. The bone windows are unremarkable for a fracture or for a destructive lesion. IMPRESSION: 1. There is a large cystic mass with a solid component low in the pelvis near midline. This finding is worrisome for an ovarian neoplasm such as a cyst adenocarcinoma. There is also a large amount of ascites and bilateral pleural effusions particularly on the left. 2. There is some associated atelectasis/infiltrate in each lower lobe again more so on the left. 3. There is no acute abnormality noted otherwise. These results were discussed with Dr. Aburto in the ER. Dictated on workstation # [id number] Dict: 01/23/19 1528 Trans: 01/23/19 1550 [facility] [id number] Interpreted by: MARLEEN LINDA MD Electronically signed by: Departure Communication (Admissions) Time/Spoke to Admitting Phy: 15:47 Time/Spoke to Consulting Phy: 16:11 Impression Primary Impression: Ovarian mass Additional Impressions: Ascites Qualified Codes: R18.8 - Other ascites Bilateral pleural effusion Urinary tract infection Qualified Codes: N30.00 - Acute cystitis without hematuria Disposition: ADMITTED INPATIENT Condition: Stable Admissions Decision to Admit Reason: Admit from ER (General) Decision to Admit/Date: Jan 23, 2019 Time/Decision to Admit Time: 15:47 Departure-Patient Inst. Referrals: SHANE ELIZONDO DO (PCP/Family) Primary Care Physician VAHID ABURTO MD Jan 23, 2019 14:28
[2019-01-23 14:41] LABS: BASOPHILS % (AUTO) 1 % (0-10); EOSINOPHILS # (AUTO) 0.1 10^3/uL (0.0-0.3); EOSINOPHILS % (AUTO) 1 % (0-10); HEMATOCRIT 41 % (35-52); HEMOGLOBIN 12.9 G/DL (11.5-16.0); LYMPHOCYTES # (AUTO) 1.2 X 10^3 (1.0-4.0); LYMPHOCYTES % (AUTO) 19 % (12-44); MEAN CORPUSCULAR HEMOGLOBIN 27 PG (25-34); MEAN CORPUSCULAR HGB CONC 32 G/DL (32-36); MEAN CORPUSCULAR VOLUME 84 FL (80-99); MEAN PLATELET VOLUME 10.9 FL (7.4-10.4); MONOCYTES # (AUTO) 0.7 X 10^3 (0.0-1.0); MONOCYTES % (AUTO) 12 % (0-12); NEUTROPHILS # (AUTO) 4.4 X 10^3 (1.8-7.8); NEUTROPHILS % (AUTO) 68 % (42-75); PLATELET COUNT 425 10^3/uL (130-400); RED CELL DISTRIBUTION WIDTH 15.5 % (10.0-14.5); WHITE BLOOD COUNT 6.5 10^3/uL (4.3-11.0)
[2019-01-23 14:52] LABS: BILIRUBIN,URINE NEGATIVE (NEGATIVE); CLARITY,URINE SLIGHTLY CLOUDY; COLOR,URINE YELLOW; GLUCOSE, URINE (UA) NEGATIVE (NEGATIVE); KETONES,URINE 1+ (NEGATIVE); LEUKOCYTE ESTERASE ,URINE 3+ (NEGATIVE); NITRITE,URINE NEGATIVE (NEGATIVE); PH,URINE 5 (5-9); PROTEIN,URINE 3+ (NEGATIVE); UROBILINOGEN,URINE NORMAL (NORMAL)
[2019-01-23 14:55] LABS: PROTHROMBIN TIME PATIENT 13.7 SEC (12.2-14.7)
[2019-01-23 15:00] LABS: BACTERIA,URINE MODERATE /HPF; SQUAMOUS EPITHELIAL CELL,UR 25-50 /HPF; WBC,URINE >100 /HPF
[2019-01-23 15:06] LABS: ALBUMIN 3.9 GM/DL (3.2-4.5); BILIRUBIN,TOTAL 0.4 MG/DL (0.1-1.0); CALCIUM 9.7 MG/DL (8.5-10.1); CREATININE SERUM 2.05 MG/DL (0.60-1.30); TOTAL PROTEIN 7.1 GM/DL (6.4-8.2)
--- NOTE | 2019-01-23 15:08 | Diagnostic Imaging Report ---
INDICATION: Right upper quadrant abdominal pain. TIME OF EXAM: 02:54 p.m. Correlation is made with prior chest from 09/14/2018. FINDINGS: The heart size is stable. Abnormal increased density in the left perihilar and left basilar region is noted. The right lung is clear. No pneumothorax is seen. IMPRESSION: Development of left perihilar and left basilar density since study from August. This may represent pneumonia and some associated basilar fluid. Follow-up after course of therapy is recommended to confirm clearing. Dictated by: Dictated on workstation # [id number]
--- NOTE | 2019-01-23 15:51 | Diagnostic Imaging Report ---
PROCEDURE: CT chest, abdomen, and pelvis without contrast. TECHNIQUE: Multiple contiguous axial images were obtained through the chest, abdomen, and pelvis without the use of intravenous contrast. Auto Exposure Controls were utilized during the CT exam to meet ALARA standards for radiation dose reduction. INDICATION: Abdominal pain. COMPARISON: There are no previous CT chest, abdomen and pelvis examinations available for comparison. FINDINGS: The plain film examination of the chest performed earlier today did note pneumonia/atelectasis and fluid involving the left lung base. On this exam there is indeed a large left pleural effusion. The effusion measures approximately 8.9 cm in maximum depth. There is also an effusion on the right measuring 3.6 cm in maximum depth. There is a small amount of associated atelectasis/infiltrate in each lower lobe again more so on the left. The lung apices are clear. The heart size is within normal limits. Coronary artery calcifications are noted. The aorta is not abnormally dilated. There is no obvious mediastinal or hilar adenopathy. The thyroid gland where visualized is generally unremarkable. There is no obvious breast mass. The images through the abdomen and pelvis show that there is a moderate to large amount of ascites. Furthermore the sections through the low pelvis do show that there is a 9.1 x 11.0 cm cystic mass with an associated 3.2 x 5.5 cm solid mass along its left lateral aspect. This appearance is worrisome for an ovarian neoplasm such as a cyst adenocarcinoma. There is no obvious omental caking but the ascites could also be related to the suspected ovarian neoplasm. The pleural effusions may also be sympathetic effusions. The urinary bladder is not well-distended and difficult to assess. The uterus is difficult to evaluate but is not enlarged. The appendix was not well-visualized but there are no indirect signs of acute appendicitis. The liver does not seem to be enlarged. The spleen is within normal limits. The suspected calcified splenic aneurysm seen on the acute abdomen series exam of 09/14/2018 is again visualized. The pancreas, the adrenals, the kidneys, the gallbladder, the aorta and the inferior vena cava show no sign of an acute abnormality. The stomach is partially filled with particulate matter and difficult to assess. The bone windows are unremarkable for a fracture or for a destructive lesion. IMPRESSION: 1. There is a large cystic mass with a solid component low in the pelvis near midline. This finding is worrisome for an ovarian neoplasm such as a cystadenocarcinoma. There is also a large amount of ascites and bilateral pleural effusions particularly on the left. 2. There is some associated atelectasis/infiltrate in each lower lobe again more so on the left. 3. There is no acute abnormality noted otherwise. These results were discussed with Dr. Medina in the ER. Dictated by: Dictated on workstation # [id number]
[2019-01-23] MEDS ORDERED: cefTRIAXone FOR IV USE 1,000 MG in WATER (STERILE) FOR INJECTION 10 ML IV ONE (17:00)
--- NOTE | 2019-01-23 17:27 | NUR ---
This RN attempted report to Berenice RN room 414 however she is requesting to call me back. Also this RN was made aware the room was still dirty and they were waiting on housekeeping.
--- NOTE | 2019-01-23 17:38 | NUR ---
Report given to MENA Ng
--- NOTE | 2019-01-23 17:43 | NUR ---
Dr. Jerry in with the pt at this time and is going to perform a paracentesis. Floor RN made aware.
--- NOTE | 2019-01-23 17:55 | CONSULTATION REPORT ---
DATE OF SERVICE: 01/23/2019 ATTENDING PRIMARY CARE PHYSICIAN: Morales Corado DO. HISTORY OF PRESENT ILLNESS: The patient is a 73-year-old female who has had pain in the right upper abdominal quadrant; however, is also noticed anorexia and weight loss over the past 3 months. She was directed to go to the Emergency Department due to these symptoms as well as a known history of stage IV chronic kidney disease with an estimated GFR of 20. She has had abdominal distention and discomfort throughout the abdomen; however, not severe. She does not report any nausea or vomiting as well as no red blood per rectum nor any dark tarry stools. A CT scan was performed, which did show ascites as well as a large mass of the left adnexa concerning for neoplasm. PAST MEDICAL HISTORY: Hypertension, asthma, renal failure, and diabetes. PAST SURGICAL HISTORY: None. ALLERGIES: PENICILLIN. MEDICATIONS: Atenolol 100 mg daily, citalopram 20 mg daily, hydrochlorothiazide and lisinopril 1 daily, lovastatin 20 mg daily, sitagliptin 100 mg daily, salmeterol and fluticasone Diskus q.12 hours SOCIAL HISTORY: Negative smoke, negative alcohol. FAMILY HISTORY: Noncontributory. Vital signs - temperature is 36.9, blood pressure 146/88, pulse 109, respirations 19, and pulse ox 99% on room air. REVIEW OF SYSTEMS: This is a well-nourished female, currently guarded secondary to the abdominal discomfort. She is experiencing some shortness of breath as well. No cough or sputum production. No nausea or vomiting, no diarrhea or constipation, no red blood per rectum, no dark tarry stools. No fever or chills, with a recent weight loss in the past 3 months. All other review of systems is negative. PHYSICAL EXAMINATION: CHEST: Decreased breath sounds in the left lung base. HEART: Regular, no murmurs. EXTREMITIES: Bilateral lower extremity edema +1/3. Negative Homans sign. HEENT: No scleral icterus. NECK: No cervical lymphadenopathy. ABDOMEN: Distended with a positive fluid shift wave, no peritoneal signs. SKIN: Warm, dry. LABORATORY DATA: WBC is 6.4, hemoglobin 12.9, hematocrit 41, and platelets 425. BUN is 32, creatinine 2.05. ASSESSMENT AND PLAN: A 73-year-old female with ascites with left adnexal mass concerning for neoplasm as well as pleural effusion. We will proceed with paracentesis for diagnostic as well as therapeutic paracentesis on this admission. Job ID: [id number] DocumentID: [id number] Dictated Date: 01/23/2019 17:17:56 Package Center Supervisor Date: 01/23/2019 17:54:34 Dictated By: MAHENDRA GILBERT MD
--- NOTE | 2019-01-23 18:28 | NUR ---
SHIRAZ ÁLVAREZ admitted to room 414-1, with an admitting diagnosis of OVARIAN MASSM ABD ASCITES, BILAT PLEURAL EFFUSION , on 01/23/19 from ER via CART, accompanied by ICU STAFF.SHIRAZ ÁLVAREZ introduced to surroundings, call light, bed controls, phone, TV, temperature control, lights, meal times, smoking policy, visitor policy, side rail policy, bathrooms and showers. Patient Rights given to patient in the handbook. SHIRAZ ÁLVAREZ verbalizes understanding that [facility] is not responsible for the loss or damage to any personal effects or valuables that are kept in the patients posession during their hospitalization. SHIRAZ ÁLVAREZ verbalizes understanding of Interdisciplinary Patient Education. Patient and/or family were informed about the Rapid Response Team and its purpose.
[2019-01-23] MEDS ORDERED: CATHETER FLUSH 10 ML SYR IV PRN (18:30)
[2019-01-23] MEDS: NS IV 1000 ML 1,000 ML IV SCH (18:41)
[2019-01-23 20:00] VITALS: BP 148/82
[2019-01-23] MEDS: inSUlin ASPART (NovoLOG) 1 UNIT/0.01 ML (CHARGE PER UNIT) SC SCH (22:23)
[2019-01-23 22:25] VITALS: BP 148/82
[2019-01-24] VITALS: BP 146/79
--- NOTE | 2019-01-24 02:50 | OPERATIVE REPORT ---
DATE OF SERVICE: 01/23/2019 ATTENDING PRIMARY CARE PHYSICIAN: Morales Corado D.O. PREPROCEDURE DIAGNOSES: Ascites, weakness, weight loss, large left adnexal mass. POSTOPERATIVE DIAGNOSES: Ascites, weakness, weight loss, large left adnexal mass. PROCEDURE: Paracentesis. SURGEON: Mahendra Gilbert M.D. ANESTHESIA: Local. ESTIMATED BLOOD LOSS: Minimal. FINDINGS: Straw yellow transudative fluid. DISPOSITION: The patient tolerated the procedure well. INDICATIONS: The patient is a 73-year-old female, who presented with pain in the right upper abdominal quadrant; however, she has also noted anorexia and weight loss over the past 3 months. She was directed to go to the Emergency Department due to these symptoms as well as known history of stage IV chronic kidney disease with an estimated GFR of 20. She has had abdominal distention and discomfort throughout the abdomen for the past several weeks, however, not severe. She does not report any nausea, no vomiting as well as no red blood per rectum nor any dark tarry stools. A CT scan was performed, which did show ascites as well as a large mass of the left adnexa concerning for neoplasm. DESCRIPTION OF PROCEDURE: The abdomen was prepped and draped in standard surgical fashion. 1% lidocaine was used to anesthetize the right lateral abdomen including the skin, subcutaneous tissue, muscle layers as well as the peritoneal lining. A vertical skin incision was made using an 11 blade and the trocar and catheter were then inserted withdrawing of straw yellow transudative fluid. The catheter was then advanced over the trocar without any resistance. The catheter was then placed to tubing and gravity drainage bag. The catheter was then covered with gauze followed by Op-Site. The patient tolerated the procedure well. We will keep the catheter in for approximately 24 hours or until asymptomatic and then remove the catheter. We will also send the fluid off for analysis as well as cytology due to concerns of a potential malignant ascites. Job ID: [id number] DocumentID: [id number] Dictated Date: 01/23/2019 19:48:30 Marine Operations Coordinator Date: 01/24/2019 02:49:09 Dictated By: MAHENDRA GILBERT MD
[2019-01-24 04:15] VITALS: BP 136/78
[2019-01-24 05:01] LABS: BASOPHILS # (AUTO) 0.1 10^3/uL (0.0-0.1); BASOPHILS % (AUTO) 1 % (0-10); EOSINOPHILS # (AUTO) 0.2 10^3/uL (0.0-0.3); EOSINOPHILS % (AUTO) 3 % (0-10); HEMATOCRIT 40 % (35-52); HEMOGLOBIN 12.6 G/DL (11.5-16.0); LYMPHOCYTES # (AUTO) 1.7 X 10^3 (1.0-4.0); LYMPHOCYTES % (AUTO) 24 % (12-44); MEAN CORPUSCULAR HEMOGLOBIN 26 PG (25-34); MEAN CORPUSCULAR HGB CONC 32 G/DL (32-36); MEAN CORPUSCULAR VOLUME 83 FL (80-99); MEAN PLATELET VOLUME 10.7 FL (7.4-10.4); MONOCYTES # (AUTO) 0.9 X 10^3 (0.0-1.0); MONOCYTES % (AUTO) 13 % (0-12); NEUTROPHILS # (AUTO) 4.1 X 10^3 (1.8-7.8); NEUTROPHILS % (AUTO) 59 % (42-75); PLATELET COUNT 436 10^3/uL (130-400); RED CELL DISTRIBUTION WIDTH 15.9 % (10.0-14.5); WHITE BLOOD COUNT 6.9 10^3/uL (4.3-11.0)
[2019-01-24 05:26] LABS: ALANINE AMINOTRANSFERASE < 6 U/L (0-55); ALBUMIN 3.3 GM/DL (3.2-4.5); ALKALINE PHOSPHATASE 51 U/L (40-136); BILIRUBIN,TOTAL 0.3 MG/DL (0.1-1.0); BUN/CREATININE RATIO 13; CALCIUM 9.1 MG/DL (8.5-10.1); CARBON DIOXIDE 22 MMOL/L (21-32); CHLORIDE 105 MMOL/L (98-107); CREATININE SERUM 2.04 MG/DL (0.60-1.30); GFR ESTIMATED 24; GLUCOSE 138 MG/DL (70-105); POTASSIUM 3.9 MMOL/L (3.6-5.0); SODIUM 138 MMOL/L (135-145)
[2019-01-24] MEDS: inSUlin ASPART (NovoLOG) 1 UNIT/0.01 ML (CHARGE PER UNIT) SC SCH ×4 (05:45→20:58)
--- NOTE | 2019-01-24 07:07 | Pulmonary Consultation ---
MADELIN CHERY,MED STUDENT 01/24/19 0707: History of Present Illness History of Present Illness Date of Consultation 01/24/19 06:34 Time Seen by Provider: 06:35 Date of Admission Reason for Visit: Abdominal pain, CKD, fever History of Present Illness Patient presented to the ER 2days ago with RUQ abdominal, weight loss, decreased appetite, decreased urination, and reported fever and malaise lasting for 1month to her PCP Dr. Corado. Patient has a history of stage 4 CKD and GFR of 20. Denies smoking hx and heart disease, admits to chronic second smoke exposure and NIDDMII and a cyst on one of her ovarians. Patient is down 30 pounds in the last 5wks. Patient goes on tangents when asked open ended questions making is difficult to get a detailed history ROS - admits chills, chest tightness, abdominal pain - denies fever, headache, nausea, vomiting, chest pain, SOB, cough changes in vision, changes in hearing, numbness, tingling Allergies and Home Medications Allergies Coded Allergies: Penicillins (Unverified Allergy, Unknown, 01/24/19) Home Medications Amlodipine Besylate 10 Mg Tablet, 10 MG PO DAILY, (Reported) Atenolol 100 Mg Tablet, 100 MG PO DAILY, (Reported) LAST FILLED #90 07-03-18 Biotin 5 Mg Tablet, 5 MG PO DAILY, (Reported) Cholecalciferol (Vitamin D3) 2,000 Unit Capsule, 2,000 UNIT PO DAILY, (Reported) Cyanocobalamin (Vitamin B-12) 500 Mcg Tab.subl, 1,500 MCG SL DAILY, (Reported) Fluticasone Propionate 16 Gm [place].susp, 2 SPRAYS NS DAILY, (Reported) Fluticasone/Salmeterol 1 Each Blst.w.dev, 1 PUFF INH BID, (Reported) Gabapentin 100 Mg Capsule, 100 MG PO BID, (Reported) LAST FILLED #60 07-16-18 Ginkgo Biloba 40 Mg Capsule, 80 MG PO DAILY, (Reported) Insulin Aspart 300 Units/3 Ml Solution, 5 UNITS SC TIDAC, (Reported) LAST FILLED 08-16-18 Insulin Detemir 100 Unit/1 Ml Insuln.pen, 23 UNITS SC HS, (Reported) LAST FILLED 10-29-18 Lovastatin 20 Mg Tablet, 20 MG PO HS, (Reported) Turmeric/Turmeric Root Extract 1 Each Capsule, 450 MG PO DAILY, (Reported) Past Snpnhsr-Qpizrx-Hvzwml Hx Past Med/Social Hx: Reviewed Nursing Past Med/Soc Hx Patient Social History Alcohol Use: Denies Use Recreational Drug Use: No Smoking Status: Never a Smoker 2nd Hand Smoke Exposure: No Recent Foreign Travel: No Contact w/Someone Who Travel: No Recent Infectious Disease Expo: No Recent Hopitalizations: No Physical Abuse: No Sexual Abuse: No Mistreated: No Fear: No Seasonal Allergies Seasonal Allergies: No Past Medical History Surgeries: No Respiratory: Yes (ASTHMA) Asthma Cardiac: No Neurological: No Female Reproductive Disorders: Ovarian Cyst Genitourinary: Yes Renal Failure Gastrointestinal: No Musculoskeletal: No Endocrine: Yes Diabetes, Insulin dep, Diabetes, Non-Insulin dep HEENT: No Cancer: No Psychosocial: No Integumentary: No Blood Disorders: No Adverse Reaction/Blood Tranf: No Review of Systems Constitutional: Chills, Weakness, Malaise; No: Fever Eyes: No: Pain, Vision change ENT: No: Ear pain Respiratory: No: Cough, Dry, Shortness of breath, SOB with excertion, Wheezing, Hemoptysis Gastrointestinal: Abdominal Pain; No: Nausea, Vomiting Sepsis Event Evaluation Height, Weight, BMI Height: 5'3.00" Weight: 146lbs. 9.0oz. 66.137061tt; 24.74 BMI Method:Stated Exam Exam Vital Signs Date Time Temp Pulse Resp B/P (MAP) Pulse Ox O2 Delivery O2 Flow Rate FiO2 01/24/19 04:15 36.5 101 20 136/78 (97) 94 Room Air 01/24/19 00:00 36.7 104 18 146/79 (101) 95 Room Air 01/23/19 22:25 37.2 108 20 148/82 98 Room Air 01/23/19 20:00 Room Air 01/23/19 20:00 37.2 108 20 148/82 (104) 98 Room Air 01/23/19 18:21 96 Room Air 01/23/19 18:08 36.6 106 18 177/126 96 01/23/19 14:14 36.9 109 19 146/88 (107) 99 Room Air I & O 01/24/19 07:00 Intake Total 1520 ml Output Total 5000 ml Balance -3480 ml Height & Weight Height: 5'3.00" Weight: 146lbs. 9.0oz. 66.423092sk; 24.74 BMI Method:Stated General Appearance: No Apparent Distress, Anxious, Chronically ill, Cachetic HEENT: PERRL/EOMI Neck: Non Tender, Supple Respiratory: Chest Non Tender, Lungs Clear, Normal Breath Sounds, No Accessory Muscle Use, No Respiratory Distress Cardiovascular: Regular Rate, Rhythm, No Edema, No Gallop, No JVD, No Murmur, Normal Peripheral Pulses, Tachycardia Capillary Refill: Less Than 3 Seconds Peripheral Pulses: 2+ Dorsalis Pedis (R), 2+ Left Dors-Pedis (L), 2+ Radial Pulses (R), 2+ Radial Pulses (L) Gastrointestinal: no pulsatile mass, mass (hard nodular texture across breadth abdomen) Extremity: Normal Range of Motion, Non Tender Neurologic/Psychiatric: Alert, Oriented x3, No Motor/Sensory Deficits, Normal Mood/Affect Skin: Normal Color, Warm/Dry Lymphatic: Other (possible L supraclavicle node enlagement ) Results Lab Laboratory Tests 01/23/19 14:25 01/24/19 04:30 Assessment/Plan Assessment/Plan B/l pleural effusion L>R - Thoracentesis is planned for today - CBC w/ diff, cytology, LDH, protein, gram stain and cultures, glucose, CEA, CA125, C19-9, Atelectasis - IS CKD stage 4 w/ GFR of 24 - management per primary Recent weight loss of 30lbs in 5wks - suspicious for cancer - midline Ovarian mass see on CT NIDDMII - management per primary suspected UTI - management per primary URMILA CHRISTIAN DO 01/29/19 1412: Allergies and Home Medications Allergies Coded Allergies: Penicillins (Unverified Allergy, Unknown, 01/24/19) Home Medications Amlodipine Besylate 10 Mg Tablet, 10 MG PO DAILY, (Reported) Atenolol 100 Mg Tablet, 100 MG PO DAILY, (Reported) LAST FILLED #90 07-03-18 Biotin 5 Mg Tablet, 5 MG PO DAILY, (Reported) Cholecalciferol (Vitamin D3) 2,000 Unit Capsule, 2,000 UNIT PO DAILY, (Reported) Cyanocobalamin (Vitamin B-12) 500 Mcg Tab.subl, 1,500 MCG SL DAILY, (Reported) Fluticasone Propionate 16 Gm [place].susp, 2 SPRAYS NS DAILY, (Reported) Fluticasone/Salmeterol 1 Each Blst.w.dev, 1 PUFF INH BID, (Reported) Gabapentin 100 Mg Capsule, 100 MG PO BID, (Reported) LAST FILLED #60 07-16-18 Ginkgo Biloba 40 Mg Capsule, 80 MG PO DAILY, (Reported) Insulin Aspart 300 Units/3 Ml Solution, 5 UNITS SC TIDAC, (Reported) LAST FILLED 08-16-18 Insulin Detemir 100 Unit/1 Ml Insuln.pen, 23 UNITS SC HS, (Reported) LAST FILLED 10-29-18 Lovastatin 20 Mg Tablet, 20 MG PO HS, (Reported) Turmeric/Turmeric Root Extract 1 Each Capsule, 450 MG PO DAILY, (Reported) Review of Systems Time Seen by Provider: 14:13 Exam Exam General Appearance: No Apparent Distress, Anxious, Chronically ill, Cachetic HEENT: PERRL/EOMI Neck: Non Tender, Supple Respiratory: Chest Non Tender, Lungs Clear, Normal Breath Sounds, No Accessory Muscle Use, No Respiratory Distress Cardiovascular: Regular Rate, Rhythm, No Edema, No Gallop, No JVD, No Murmur, Normal Peripheral Pulses Capillary Refill: Less Than 3 Seconds Gastrointestinal: no pulsatile mass, mass (hard nodular texture across breadth abdomen) Extremity: Normal Range of Motion, Non Tender Neurologic/Psychiatric: Alert, No Motor/Sensory Deficits, Normal Mood/Affect Skin: Normal Color, Warm/Dry Assessment/Plan Assessment/Plan B/l pleural effusion L>R - Thoracentesis Atelectasis - IS CKD stage 4 w/ GFR of 24 - management per primary Recent weight loss of 30lbs in 5wks - suspicious for cancer - midline Ovarian mass see on CT NIDDMII - management per primary suspected UTI - management per primary MADELIN CHERY,MED STUDENT Jan 24, 2019 07:07 URMILA CHRISTIAN DO Jan 29, 2019 14:12
[2019-01-24 08:00] VITALS: BP 145/83
--- NOTE | 2019-01-24 08:01 | NUR ---
RELEASE OF RECORDS CONSENT SENT TO [facility].
--- NOTE | 2019-01-24 08:08 | History & Physical-Hospitalist ---
History of Present Illness HPI/Chief Complaint Pt is a 73yoCF with a PMH CKD Stage 4, HTN. and NIDDMII who presented to the ER due to weakness and dehydration from Dr Corado's office. She is a poor historian and knows that she is in the hospital but not able to tell me many other details. I did speak with her PCP yesterday who states that her has just returned home after a lengthy 6 month hospital and patient's health in that time has deteriorated. She has lost over 30lbs (most of that being in the last 5 weeks) and was delusional in his office yesterday. She appeared clinically dry and was referred to the ER for evaluation. She was found to have a UTI on arrival to the ER and due eto abdominal pain a CT of her abdomen was ordered which revealed large volume ascites and an ovarian mass concerning for neoplasm. She was also noted to have bilateral pleural effusions L>R. She was admitted and paracentesis was done yesterday evening by Dr Jerry. This morning Dr Calvert plan to do a thoracentesis. I attempted to discuss the concerns about the ovarian mass with the patient and she responded by sayings she knew she had a mass but "I'm done having babies so never worried about it." She states she was informed of this by her key maker at [place]. Source: patient Date Seen 01/24/19 Time Seen by a Provider: 07:53 Attending Physician Giovanny Friedman MD PCP Morales Corado DO Referring Physician Date of Admission Jan 23, 2019 at 4:57 pm Home Medications & Allergies Home Medications Reviewed patient Home Medication Reconciliation performed by pharmacy medication reconciliations fabrication technician and/or nursing. Patients Allergies have been reviewed. Allergies Allergies Coded Allergies Penicillins (Unverified Allergy, Unknown, 01/24/19) Past Xkqsdyo-Turbim-Dehmca Hx Past Med/Social Hx: Reviewed Nursing Past Med/Soc Hx Patient Social History Marrital Status: Employed/Student: retired Alcohol Use: Denies Use Recreational Drug Use: No Smoking Status: Never a Smoker 2nd Hand Smoke Exposure: No Physical Abuse Screen: No Sexual Abuse: No Recent Foreign Travel: No Contact w/other who traveled: No Recent Hopitalizations: No Recent Infectious Disease Expo: No Seasonal Allergies Seasonal Allergies: No Past Medical History Respiratory: COPD Cardiac: Hypertension Female Reproductive Disorders: Ovarian Cyst Genitourinary: Renal Failure Endocrine: Diabetes, Insulin dep History of Blood Disorders: No Adverse Reaction to Blood Coles: No Family History Reviewed Nursing Family Hx No Pertinent Family Hx Review of Systems ROS-Unable to Obtain: limited by dementia Constitutional: see HPI Physical Exam Physical Exam Vital Signs Vital Signs - First Documented 01/23/19 14:14 Temp 36.9 Pulse 109 Resp 19 B/P (MAP) 146/88 (107) Pulse Ox 99 O2 Delivery Room Air Capillary Refill : Less Than 3 Seconds Height, Weight, BMI Height: 5'3.00" Weight: 146lbs. 9.0oz. 66.586096kf; 24.74 BMI Method:Stated General Appearance: No Apparent Distress, Chronically ill, Thin HEENT: Moist Mucous Membranes; No Scleral Icterus (L), No Scleral Icterus (R) Neck: Normal Inspection, Supple; No Thyromegaly Respiratory: Lungs Clear, No Accessory Muscle Use, No Respiratory Distress Cardiovascular: Regular Rate, Rhythm, No Murmur Gastrointestinal: Normal Bowel Sounds, Non Tender, Soft, Distended Extremity: No Calf Tenderness, No Pedal Edema Neurologic/Psychiatric: Alert, Other (oriented to person, pleasantly confused) Results Results/Procedures Labs Laboratory Tests 01/26/19 05:15 Patient resulted labs reviewed. Imaging: Reviewed Imaging Films, Reviewed Imaging Report Assessment/Plan Admission Diagnosis UTI Ovarian Mass Ascites Bilateral Pleural Effusion CKD Admission Status: Inpatient Order (span 2 midnights) Reason for Inpatient Admission: Needs IV abx, paracentesis, thoracentesis, further work up of ovarian mass Assessment and Plan UTI No evidence of sepsis continue rocephin await cultures Ovarian Mass Ca-125 pending Concern for neoplasm, Discussed with Dr Angel and Dr Montiel who will see in consultation Cytology sent off fluid Ascites sp thoracentesis 4L removed yesterday Dr Jerry consulted, appreciate recs Bilateral Pleural Effusion Plan for thoracentesis if able today Dr Calvert consulted, appreciate recs On room air CKD At baseline HTN BP mildly elevated and tachycardiac- will restart Atenolol IDDMII Blood sugars well controlled- trend Hold home insulin as BS ~130 SSI ordered Ppx Reg diet SCDs (hold Lovenox today as blood fluid from thoracentesis noted) NS @30cc/hr Diagnosis/Problems Diagnosis/Problems (1) Essential (primary) hypertension Status: Chronic (2) Insulin dependent diabetes mellitus Status: Chronic (3) Ovarian mass Status: Acute (4) Bilateral pleural effusion Status: Acute (5) Ascites Status: Acute Qualifiers: Ascites type: other type Qualified Codes: R18.8 - Other ascites (6) Urinary tract infection Status: Acute Qualifiers: Urinary tract infection type: acute cystitis Hematuria presence: without hematuria Qualified Codes: N30.00 - Acute cystitis without hematuria (7) Hypokalemia Status: Acute GIOVANNY FRIEDMAN MD Jan 24, 2019 08:08
--- NOTE | 2019-01-24 08:33 | Pulmonary Procedures ---
Pulmonary Procedures Date of Procedure Date of Service: Jan 24, 2019 Procedure: US guided complex thoracentesis Preop DX: pleural effusion post op DX: Same 1500cc of dark red/brown pleural fluid Complications: None After informed consent obtained US was used to localize pleural fluid. Pt has [bilateral L>R] pleural effusions. Skin was anesthetized at approximately the 10th ICS posterior axillary line. Thoracentesis needle was advanced through the 10th ICS posterior axillary line. Needle was removed and catheter left in place.1500cc of dark red/brown pleural fluid using vacuum bottles. Catheter was then removed. Pt tolerated procedure well. No complications noted. URMILA CHRISTIAN DO Jan 24, 2019 08:33
[2019-01-24] MEDS ORDERED: AMLO10TA7 PO (08:44)
[2019-01-24] MEDS ORDERED: FLUT1DIS28 INH (08:44)
[2019-01-24] MEDS ORDERED: LISI-552 PO (08:44)
[2019-01-24] MEDS ORDERED: FLUT16SP22 NS (08:44)
[2019-01-24] MEDS ORDERED: LOVA20TA2 PO (08:44)
--- NOTE | 2019-01-24 08:45 | NUR ---
IV FELL OUT LEFT AC. RESTARTED WITH #22 LT HAND X 1 STICK.
--- NOTE | 2019-01-24 08:45 | NUR ---
THORACENTESIS DONE AT BEDSIDE BY DR. CHRISTIAN AND FLUID TO LAB.
--- NOTE | 2019-01-24 09:02 | Diagnostic Imaging Report ---
EXAM: CHEST 1 VIEW, AP/PA ONLY. INDICATION: Left thoracentesis. COMPARISON: CT chest without contrast dated 01/23/2019. FINDINGS: There is no residual pleural effusion identified. No pneumothorax. Mild linear atelectasis in the left lung. Normal heart size and central pulmonary vascularity. No acute osseous findings. IMPRESSION: No residual pleural effusion identified. No pneumothorax. Dictated by: Dictated on workstation # [id number]
[2019-01-24 09:23] LABS: GLUCOSE,BODY FLUID 139 MG/DL; LDH,BODY FLUID 341 U/L; TOTAL PROTEIN,BODY FLUID 4.3 G/DL
--- NOTE | 2019-01-24 09:42 | NUR ---
Pt is [facility]. Supply Chain Technician provided prayer and Communion.
[2019-01-24 10:20] LABS: BODY FLUID APPEARENCE SLT BLDY; BODY FLUID COLOR YELLOW; BODY FLUID PH 6.7; BODY FLUID RBC COUNT 17600 /uL; BODY FLUID SOURCE PLEURAL; BODY FLUID WBC TOTAL COUNT 2620 /uL
[2019-01-24 10:48] LABS: BF OTHER CELLS 5 %; LYMPHOCYTES,BODY FLUID 92 %
[2019-01-24] MEDS ORDERED: GABA-486 PO (10:51)
[2019-01-24] MEDS ORDERED: CHOL20003 PO (10:51)
[2019-01-24] MEDS ORDERED: GINK40CA5 PO (10:51)
[2019-01-24] MEDS ORDERED: BIOT5TAB PO (10:51)
[2019-01-24] MEDS ORDERED: INSU100I14 SC (10:51)
[2019-01-24] MEDS ORDERED: TURM500C4 PO (10:51)
[2019-01-24] MEDS ORDERED: ATEN100T PO (10:51)
[2019-01-24] MEDS ORDERED: INSU100I29 SC (10:51)
[2019-01-24] MEDS ORDERED: CYAN500T52 SL (10:51)
--- NOTE | 2019-01-24 10:55 | NUR ---
SPOKE WITH THE PATIENT ABOUT HER MEDICATIONS HOWEVER SHE WAS UNABLE TO VERIFY WHAT SHE IS TAKING. SHE DOES STATE ONE WAS RECENTLY DISCONTINUED BY DR. RAYMOND GIBBS. I TRIED TO CALL THE PATIENTS HOWEVER HE DID NOT ANSWER, PATIENT STATES HE IS CURRENTLY RECEIVING DIALYSIS. I CALLED DR. ELIZONDO'S OFFICE AND THEY FAXED OVER THE PATIENTS CURRENT MED LIST. THEY WERE ABLE TO ALSO INCLUDE DOCUMENTATION FROM DR. DANE GIBBS'S OFFICE ABOUT WHAT MEDICATION WAS RECENTLY DISCONTINUED. I UPDATED THE MED REC WITH THE LIST HOWEVER SOME OF THE REPORTED MEDICATIONS ARE PAST DUE FOR REFILL. I NOTED THE PAST DUE FILL DATES ON THE MED REC. IT WAS NOTED THE LISINOPRIL (LAST FILLED #90 12-12-18)AND LISINOPRIL HCTZ (LAST FILLED #90 07-03-18) HAVE BOTH BEEN STOPPED BY DR. RAYMOND GIBBS. PAST DUE FOR REFILL MEDS INCLUDE: 10-29-18 LEVEMIR FLEXTOUCH 23 UNITS DAILY 08-16-18 NOVOLOG FLEXPEN 5 UNITS AC 07-16-18 GABAPENTIN 100MG BID #60 07-03-18 ATENOLOL 100MG DAILY #[address] ELIZONDO'S OFFICE INCLUDES THE FOLLOWING OTC MEDS: BIOTIN 5000MCG DAILY VITAMIN B-12 1500MCG ODT DAILY GINKGO BILOBA 80MG DAILY VITAMIN D3 2000 UNITS DAILY TURMERIC 450MG DAILY SEE CHART FOR COMPLETE LIST FROM DR. ELIZONDO'S OFFICE.
[2019-01-24 12:00] VITALS: BP 130/77
--- NOTE | 2019-01-24 14:36 | NUR ---
Anointed by Fr Phan Philippe
--- NOTE | 2019-01-24 15:18 | Physical Therapy Evaluation ---
PT Evaluation-General Medical Diagnosis Admission Date Jan 23, 2019 at 16:57 Medical Diagnosis: ovarian mass/abdominal ascites/bilateral pleural effusion Onset Date: Jan 23, 2019 Therapy Diagnosis Therapy Diagnosis: generalized weakness/debility Height/Weight Height (Feet): 5 Height (Inches): 3.00 Weight (Pounds): 146 Weight (Ounces): 9.0 Precautions Precautions/Isolations: Fall Prevention, Standard Precautions Weight Bear Status Right Lower Extremity: Right Weight Bearing/Tolerated Left Lower Extremity: Left Weight Bearing/Tolerated Referral Physician: Elder Reason for Referral: Evaluation/Treatment Medical History Pertinent Medical History: DM, Renal Insufficiency Current History ER with abdominal pain, weight loss (30#), decreased appetite, decreased urination Reviewed History: Yes Social History Home: Single Level Current Living Status: Spouse Prior/Core FIM Prior Level of Function Therapy Code Descriptions/Definitions Functional [place] Measure: 0=Not Assessed/NA 4=Minimal Assistance 1=Total Assistance 5=Supervision or Setup 2=Maximal Assistance 6=Modified [place] 3=Moderate Assistance 7=Complete [place] Therapy Quality Codes: 6 Independent with activity with or without an assistive device 5 Patient requires set up or clean up by helper. Patient completes activity by themselves 4 Supervision or touching assist (CGA). [place] provide cues , steadying assist 3 The helper provides less than half the effort to complete the activity 2 The helper provides more than half the effort to complete the activity 1 Dependent. The helper does all the effort to complete an activity 7 Patient refused to complete or attempt activity 9 The patient did not perform the activity before the current illness or injury 88 Not attempted due to Medical conditions or safety concerns Functional Abilities and Goals: Independent: Patient completed the activities by him/herself, with or without an assistive device, with no assistance from a helper. Needed Some Help: Patient needed partial assistance from another person to complete activities. Dependent: A helper completed the activities for the patient. Unknown: Not Applicable: Bed Mobility: 6 Transfers (B,C,W/C) (FIM): 6 Gait: 6 Indoor Mobility (Ambulation): Independent Prior Devices Use: Other-see list below (SBQC) PT Evaluation-Current Subjective Patient is in bed, very alert and talkative, confused, etc. Pain Numeric Pain Scale: 0-No Pain Location: No Pain Reported Objective Patient Orientation: Confused Problem Solving: Poor Attachments: Drains, IV ROM/Strength ROM Lower Extremities bilateral LE WFL Strength Lower Extremities 4-/5 grossly bilateral LE Integumentary/Posture Integumentary refer to nursing notes Bladder Incontinence: Yes Posture WFL Neuromuscular (Tone, Coordination, Reflexes) diminished coordination Sensory Vision: Functional Hearing: Functional Sensation Right Lower Extremit: Impaired Sensation Left Lower Extremity: Impaired Transfers Therapy Code Descriptions/Definitions Functional [place] Measure: 0=Not Assessed/NA 4=Minimal Assistance 1=Total Assistance 5=Supervision or Setup 2=Maximal Assistance 6=Modified [place] 3=Moderate Assistance 7=Complete [place] Transfers (B, C, W/C) (FIM): 4 Scootin Rollin Supine to/from Sit: 6 Sit to/from Stand: 4 Gait Mode of Locomotion: Walk Anticipated Mode of Locomotion: Walk Gait (FIM): 4 Distance (FIM): 3=150 ft Distance: 150' Gait Level of Assist: 4 Gait Assistive Device: Cane Small Base Quad Comments/Gait Description WBOS Balance Sitting Static: Normal Sitting Dynamic: Normal Standing Static: Fair Standing Dynamic: Fair Assessment/Needs 73 y.o. female, will benefit from skilled PT to address functional strength and mobility to improve current LOF. Patient is very confused and has difficulty remaining on task requiring redirection. Rehab Potential: Fair PT Jail Guard Goals Jail Guard Goals PT [facility] Goals Time Frame: Feb 09, 2019 Transfers (B,C,W/C) (FIM): 6 Gait (FIM): 6 Gait distance (FIM): 3=150 ft Distance: 250' Gait Level of Assist: 6 Gait Assistive Device: FWW, Cane Small Base Quad PT Plan Problem List Problem List: Activity Tolerance, Functional Strength, Safety, Balance, Gait, Transfer, Bed Mobility Treatment/Plan Treatment Plan: Continue Plan of Care Treatment Plan: Bed Mobility, Education, Functional Activity Nelsy, Functional Strength, Gait, Safety, Therapeutic Exercise, Transfers Treatment Duration: Feb 09, 2019 Frequency: 6 times per week Estimated Hrs Per Day: .25 hour per day Patient and/or Family Agrees t: Yes Discharge Recommendations Therapy Discharge Recommendati: 24 Hour Supervision Time/GCodes Time In: 1445 Time Out: 1505 Total Billed Treatment Time: 20 Total Billed Treatment 1 visit EVModC 20 min TAMMY MCCORMACK PT Jan 24, 2019 15:18
--- NOTE | 2019-01-24 15:45 | Occupational Therapy Eval ---
OT Evaluation-General/PLF Medical Diagnosis Admission Date Jan 23, 2019 at 16:57 Medical Diagnosis: ovarian mass/abdominal ascites/bilateral pleural effusion Onset Date: Jan 23, 2019 Therapy Diagnosis Therapy Diagnosis: decreased functional mobility and ADL activity Height/Weight Height (Feet): 5 Height (Inches): 3.00 Weight (Pounds): 146 Weight (Ounces): 9.0 Precautions Precautions/Isolations: Fall Prevention, Standard Precautions Safety Interventions: Bed Exit Alarm Referral Physician: Elder Referral Reason: Activity Tolerance, Self Care, Evaluation/Treatment, Strengthening/ROM Medical History Pertinent Medical History: DM, Renal Insufficiency Additional Medical History PMHx: HTN, NIDDMII, renal failure, DM, dementia Current History Per H&P: "Pt is a 73yoCF with a PMH CKD Stage 4, HTN. and NIDDMII who presented to the ER due to weakness and dehydration from Dr Corado's office. She is a poor historian and knows that she is in the hospital but not able to tell me many other details. I did speak with her PCP yesterday who states that her has just returned home after a lengthy 6 month hospital and patient's health in that time has deteriorated. She has lost over 30lbs (most of that being in the last 5 weeks) and was delusional in his office yesterday. She appeared clinically dry and was referred to the ER for evaluation. She was found to have a UTI on arrival to the ER and due eto abdominal pain a CT of her abdomen was ordered which revealed large volume ascites and an ovarian mass concerning for neoplasm. She was also noted to have bilateral pleural effusions L>R. She was admitted and paracentesis was done yesterday evening by Dr Jerry. This morning Dr Calvert plan to do a thoracentesis. I attempted to discuss the concerns about the ovarian mass with the patient and she responded by sayings she knew she had a mass but "I'm done having babies so never worried about it." She states she was informed of this by her customer service officer at [place]." Reviewed History: Yes Social History Home: Single Level Current Living Status: Spouse Entry Into Home: Level Entry Steps Into Home: 0 ADL-Prior Level of Function Therapy Code Descriptions/Definitions Functional [place] Measure: 0=Not Assessed/NA 4=Minimal Assistance 1=Total Assistance 5=Supervision or Setup 2=Maximal Assistance 6=Modified [place] 3=Moderate Assistance 7=Complete [place] Therapy Quality Codes: 6 Independent with activity with or without an assistive device 5 Patient requires set up or clean up by helper. Patient completes activity by themselves 4 Supervision or touching assist (CGA). Catron provide cues , steadying assist 3 The helper provides less than half the effort to complete the activity 2 The helper provides more than half the effort to complete the activity 1 Dependent. The helper does all the effort to complete an activity 7 Patient refused to complete or attempt activity 9 The patient did not perform the activity before the current illness or injury 88 Not attempted due to Medical conditions or safety concerns Functional Abilities and Goals: Independent: Patient completed the activities by him/herself, with or without an assistive device, with no assistance from a helper. Needed Some Help: Patient needed partial assistance from another person to complete activities. Dependent: A helper completed the activities for the patient. Unknown: Not Applicable: Self Care: Independent Functional Cognition: Unknown DME/Equipment: Bath Chair DME/Equipment Comments Pt states IND without use of AE Occupation: retired Drive Self: No (/ neighbors drive) OT Current Status Subjective Pt agreeable to OT evaluation, no pain noted, pt awake and alert in bed. Mental Status/Objective Patient Orientation: Person, Place, Situation Pt requires redirection for task completion/ answering questions throughout evaluation. Attachments: Mcpherson Catheter, IV Current Glasses/Contacts: Yes Hearing Aids: No Dentures/Partials: Yes Hand Dominance: Right Upper Extremity ROM WFL Upper Extremity Coordination WFL Upper Extremity Sensation WFL- no paresthesia stated Upper Extremity Strength BUE: shoulder flexion/ abduction=4-/5; elbow flexion 4/5 ADL-Treatment Therapy Code Descriptions/Definitions Functional [place] Measure: 0=Not Assessed/NA 4=Minimal Assistance 1=Total Assistance 5=Supervision or Setup 2=Maximal Assistance 6=Modified [place] 3=Moderate Assistance 7=Complete [place] Therapy Quality Codes: 6 Independent with activity with or without an assistive device 5 Patient requires set up or clean up by helper. Patient completes activity by themselves 4 Supervision or touching assist (CGA). Catron provide cues , steadying assist 3 The helper provides less than half the effort to complete the activity 2 The helper provides more than half the effort to complete the activity 1 Dependent. The helper does all the effort to complete an activity 7 Patient refused to complete or attempt activity 9 The patient did not perform the activity before the current illness or injury 88 Not attempted due to Medical conditions or safety concerns Grooming (FIM): 6 (Pt completes wiping face/ hair in bed.) Lower Body Dressing (FIM): 6 (completes sock don/ doffing in bed) Transfers (B, C, W/C) (FIM): 5 (sit to stand with SBA) Other Treatments Pt answers orientation questions correctly with much redirection. All other evaluation questions answered with redirection. Pt was asked to take sock off, pt nodded in understanding and continued talking, pt required cue to initiate t aking off blankets, pt required additional 2 verbal cues and one tactile cue to move blanket from thighs, pt requires an additional tactile cue and one verbal cue to initiate sock doffing. Pt completes ADL tasks and sit to stand with good safety. Pt left in room with call light in reach, all needs met. Education OT Patient Education: Modified ADL techniques, Purpose of tx/functional activities, Rehab process, Safety issues Teaching Recipient: Patient Teaching Methods: Demonstration, Discussion Response to Teaching: Verbalize Understanding, Return Demonstration OT Short Term Goals Short Term Goals Upper Body Dressing(FIM): 5 Lower Body Dressing(FIM): 4 1=Demonstrate adherence to instructed precautions during ADL tasks. 2=Patient will verbalize/demonstrate understanding of assistive devices/modifications for ADL. 3=Patient will improve strength/tolerance for activity to enable patient to perform ADL's. OT Custodial Goals Cat Cracker Operator Goals Eating (FIM): 6 Grooming(FIM): 6 Bathing(FIM): 5 Upper Body Dressing(FIM): 6 Lower Body Dressing(FIM): 6 Toileting(FIM): 5 Transfers (B,C,W/C) (FIM): 5 Toilet/Commode Transfer(FIM): 5 Tub Transfer(FIM): 5 Shower Transfer(FIM): 5 Additional Goals: 1-Demonstrate ADL Tasks, 2-Verbalize Understanding, 3- ImproveStrength/Nelsy 1=Demonstrate adherence to instructed precautions during ADL tasks. 2=Patient will verbalize/demonstrate understanding of assistive devices/modifications for ADL. 3=Patient will improve strength/tolerance for activity to enable patient to perform ADL's. OT Education/Plan Problem List/Assessment Assessment: Decreased Activ Tolerance, Decreased Safety Aware, Decreased UE Strength, Impaired Cognition, Impaired I ADL's, Impaired Self-Care Skills Discharge Recommendations Plan/Recommendations: Continue POC Treatment Plan/Plan of Care Treatment,Training & Education: Yes Patient would benefit from OT for education, treatment and training to promote independence in ADL's, mobility, safety and/or upper extremity function for ADL's. Treatment Duration: Jan 31, 2019 Frequency: 5 times per week Estimated Hrs Per Day: .25 hour per day Agreement: Yes Rehab Potential: Fair Time/GCodes Start Time: 15:07 Stop Time: 15:31 Total Time Billed (hr/min): 24 Billed Treatment Time 1 EVM (10), ADL (14) JEEVAN ARAUJO OTR Jan 24, 2019 15:45
[2019-01-24 15:59] VITALS: BP 132/72
[2019-01-24] MEDS: NS IV 1000 ML 1,000 ML IV SCH (17:13)
[2019-01-24] MEDS: cefTRIAXone 1,000 MG/SWFI 10 ML IV PUSH IV SCH ×2 (17:13)
--- NOTE | 2019-01-24 17:32 | Consultation ---
History of Present Illness History of Present Illness Patient Consulted On(jamal/time) 01/24/19 17:32 Date Seen by Provider: Jan 24, 2019 Time Seen by Provider: 17:30 Reason for Visit: Abdominal pain, CKD, fever History of Present Illness this is a 73 year old, female that I was asked to see for Dr. Friedman. She presented to the Ed sent by her PCP Dr. Corado. Much of the history is gleaned from the history of Dr. Friedman as it is difficult to converse with Mrs. Dasilva. She is at times oriented to place and time, but many times is not, and easily strays from conversation. She has apparently been caring for an ill for quite some time. She presented with complaint of 30 lb weight loss over 5 weeks. She also has and failure to thrive. During the workup in the ED it was found that she has a large, complex mass with ascites. It is suggested that the mass arises from the ovary but is central in the pelvis. There is a large amount of ascites and a pleural effusion noted in the CT. She has had a paracentesis and thoracentesis. She states she does not have pain. PT is currently assessing her capacity. A CA 125 is pending. However, with ascites, pelvic mass and pleural effusion, the suggestion is of ovarian neoplasm with metastasis. Currently, as she is being evaluated by PT, I will return for further exam. She does report not having had a pelvic exam or pap smear in many years however. And that Dr. Mariano had told her she had an ovarian cyst, but it unclear how this was determined, or when this was. Allergies and Home Medications Allergies Coded Allergies: Penicillins (Unverified Allergy, Unknown, 01/24/19) Home Medications Amlodipine Besylate 10 Mg Tablet, 10 MG PO DAILY, (Reported) Atenolol 100 Mg Tablet, 100 MG PO DAILY, (Reported) LAST FILLED #90 3-19 Biotin 5 Mg Tablet, 5 MG PO DAILY, (Reported) Cholecalciferol (Vitamin D3) 2,000 Unit Capsule, 2,000 UNIT PO DAILY, (Reported) Cyanocobalamin (Vitamin B-12) 500 Mcg Tab.subl, 1,500 MCG SL DAILY, (Reported) Fluticasone Propionate 16 Gm Glendo.susp, 2 SPRAYS NS DAILY, (Reported) Fluticasone/Salmeterol 1 Each Blst.w.dev, 1 PUFF INH BID, (Reported) Gabapentin 100 Mg Capsule, 100 MG PO BID, (Reported) LAST FILLED #60 07-16-18 Ginkgo Biloba 40 Mg Capsule, 80 MG PO DAILY, (Reported) Insulin Aspart 300 Units/3 Ml Solution, 5 UNITS SC TIDAC, (Reported) LAST FILLED 08-16-18 Insulin Detemir 100 Unit/1 Ml Insuln.pen, 23 UNITS SC HS, (Reported) LAST FILLED 10-29-18 Lovastatin 20 Mg Tablet, 20 MG PO HS, (Reported) Turmeric/Turmeric Root Extract 1 Each Capsule, 450 MG PO DAILY, (Reported) Patient Home Medication List Home Medication List Reviewed: Yes Past Ttrudpk-Oorxto-Rcuwua Hx Past Med/Social Hx: Reviewed Nursing Past Med/Soc Hx Patient Social History Alcohol Use: Denies Use Recreational Drug Use: No Smoking Status: Never a Smoker 2nd Hand Smoke Exposure: No Recent Foreign Travel: No Contact w/Someone Who Travel: No Recent Infectious Disease Expo: No Recent Hopitalizations: No Physical Abuse: No Sexual Abuse: No Mistreated: No Fear: No Seasonal Allergies Seasonal Allergies: No Past Medical History Surgeries: No Respiratory: Yes (ASTHMA) Asthma Cardiac: No Hypertension Neurological: No Hx : 2 Hx Para: 2 Hx Total # of Abortions (Sp): 0 Reproductive Disorders: No Female Reproductive Disorders: Ovarian Cyst (She was told by her combination technician that she has a miniscule ovarian cyst. It is unclear how long ago this was) Genitourinary: Yes Renal Failure Gastrointestinal: No Musculoskeletal: No Endocrine: Yes Diabetes, Insulin dep HEENT: No Cancer: No Psychosocial: No Integumentary: No Blood Disorders: No Adverse Reaction/Blood Tranf: No Family Medical History Reviewed Nursing Family Hx No Pertinent Family Hx Review of Systems-General Constitutional: weight loss Respiratory: no symptoms reported Gastrointestinal: see HPI; No abdominal pain, No nausea, No vomiting Genitourinary: no symptoms reported Musculoskeletal: no symptoms reported Skin: no symptoms reported Psychiatric/Neurological: No Symptoms Reported Physical Exam-General Problems Physical Exam Vital Signs Vital Signs - First Documented 01/23/19 14:14 Temp 36.9 Pulse 109 Resp 19 B/P (MAP) 146/88 (107) Pulse Ox 99 O2 Delivery Room Air Capillary Refill : Less Than 3 SecondsLess Than 3 Seconds Assessment/Plan Assessment/Plan Admission Diagnosis/Plan 1. pelvic mass, ascites and pleural effusion suggesting ovarian malignancy Will return for exam. CA - 125 is pending. Addendum - I returned to see Mrs. Dasilva on 01/25/19 at approximately 1 pm. She is eating her lunch. CA-125 is >10,000. Cytology is pending. She is easier to converse with, but still cannot keep her on task. Pelvic exam shows normal, atrophic cervix. Mass is palpable vaginally, but there does not appear to be vaginal mets (pelvic was done without speculum). She does have ascites and there are abdominal masses bilaterally, suggesting omental mets, possibly. Abdomen is rounded but not tense. There is a drain in the posterior chest with blood tinged fluid Left supraclavicular node palpated Today she is clearer and we discussed her having a fall after he went to dialysis today (he was walking to [place] and fell on a loose piece of concrete). we also discussed her children, son in [place] and daughter in [place]. Son may be getting a new job. I asked if she had discussed her hospitalization with her children and she deferred the discussion. She is concerned about her , though, as she has been unable to reach him since he told her about the fall. She also thought he was going to come see her today. Will investigate. I discussed with her the significance of the CA 125 and the mass and the ascites and pleural effusion, but she does not grasp the significance and defers the conversation. Clinical Quality Measures DVT/VTE Risk/Contraindication: Risk Factor Score Per Nursin RFS Level Per Nursing on Admit: 4+=Very High Other: HAS DOCUMENTED IN HER NOTES REASON FOR CONTRAINDICATION R/T BLOODY FLUID FROM DRAINS LIBAN PEOPLES DO Jan 24, 2019 17:32
[2019-01-24] MEDS: SIMvastatin 10 MG (ZOCOR) TAB PO SCH (19:41)
[2019-01-24 19:57] VITALS: BP 141/82
[2019-01-24] MEDS: RT-ADVAIR HFA 45/21 MCG PER PUFF IH SCH (20:45)
[2019-01-25] VITALS: BP 124/76
[2019-01-25 04:10] VITALS: BP 148/80
[2019-01-25] MEDS: inSUlin ASPART (NovoLOG) 1 UNIT/0.01 ML (CHARGE PER UNIT) SC SCH ×4 (06:15→21:34)
--- NOTE | 2019-01-25 06:51 | Pulmonary Progress Note ---
MADELIN CHERY,MED STUDENT 01/25/19 0651: Subjective Date Seen by a Provider: Jan 25, 2019 Time Seen by a Provider: 06:46 Subjective/Events-last exam Patient says that she is feeling well but is a little anxious about the results from the thoracentesis and paracentesis because "a doctor yesterday was preparing me for cancer." ROS admits to constipation, RUQ abdominal pain, nausea, vomiting denies fever, chills, headache, chest pain, cough, SOB, numbness, tingling, changes in appetite Sepsis Event Evaluation Height, Weight, BMI Height: 5'3.00" Weight: 146lbs. 9.0oz. [id number]; 24.74 BMI Method:Stated Focused Exam Lactate Level 01/23/19 14:25: Lactic Acid Level 1.71 Exam Exam Vital Signs Date Time Temp Pulse Resp B/P (MAP) Pulse Ox O2 Delivery O2 Flow Rate FiO2 01/25/19 04:10 36.3 95 18 148/80 (102) 99 Room Air 01/25/19 00:00 36.2 104 18 124/76 (92) 94 Room Air 01/24/19 20:45 96 Room Air 01/24/19 20:34 Room Air 01/24/19 19:57 36.6 101 18 141/82 (101) 95 Room Air 01/24/19 15:59 36.6 100 20 132/72 (92) 95 Room Air 01/24/19 12:00 36.9 103 18 130/77 (94) 95 Room Air 01/24/19 08:00 36.4 99 18 145/83 (103) 95 Room Air 01/24/19 08:00 Room Air I & O 01/25/19 07:00 Intake Total 2080 ml Output Total 600 ml Balance 1480 ml Height & Weight Height: 5'3.00" Weight: 146lbs. 9.0oz. [id number]; 24.74 BMI Method:Stated General Appearance: No Apparent Distress, Chronically ill, Thin HEENT: Moist Mucous Membranes; No Scleral Icterus (L), No Scleral Icterus (R) Neck: Normal Inspection, Supple; No Thyromegaly Respiratory: Chest Non Tender, Lungs Clear, Normal Breath Sounds, No Accessory Muscle Use, No Respiratory Distress Cardiovascular: Regular Rate, Rhythm, No Edema, No Gallop, No JVD, No Murmur, Normal Peripheral Pulses Capillary Refill: Less Than 3 Seconds Peripheral Pulses: 2+ Dorsalis Pedis (R), 2+ Left Dors-Pedis (L), 2+ Radial Pulses (R), 2+ Radial Pulses (L) Gastrointestinal: no pulsatile mass, tenderness (RUQ ), mass (hard nodular texture across breadth abdomen) Extremity: No Calf Tenderness, No Pedal Edema Neurologic/Psychiatric: Alert, Normal Mood/Affect, Other (oriented to person, pleasantly confused) Skin: Normal Color, Warm/Dry Lymphatic: Other (possible L supraclavicle node enlagement ) Results Lab Laboratory Tests 01/23/19 14:25 01/24/19 04:30 Assessment/Plan Assessment/Plan B/l pleural effusion L>R - Thoracentesis - 1450 cc serosanguineous fluid drained from L pleural space yesterday - results acidotic exudative serosanguineous fluid - suggestive of malignancy Atelectasis - IS CKD stage 4 w/ GFR of 24 - management per primary Recent weight loss of 30lbs in 5wks - suspicious for cancer - midline Ovarian mass see on CT - nodule mass palpated across abdomen just above the naval NIDDMII - management per primary suspected UTI - management per primary URMILA CALVERT DO 01/25/19 0708: Subjective Subjective/Events-last exam PT feels improved. Exam Exam General Appearance: Chronically ill HEENT: Moist Mucous Membranes; No Scleral Icterus (L), No Scleral Icterus (R) Neck: Normal Inspection, Supple; No Thyromegaly Respiratory: Chest Non Tender, Lungs Clear, Normal Breath Sounds, No Accessory Muscle Use, No Respiratory Distress Cardiovascular: Regular Rate, Rhythm, No Edema, No Gallop, No JVD, No Murmur, Normal Peripheral Pulses Gastrointestinal: no pulsatile mass, tenderness (RUQ ), mass Extremity: No Calf Tenderness Neurologic/Psychiatric: Alert, Normal Mood/Affect Skin: Normal Color, Warm/Dry Assessment/Plan Assessment/Plan B/l pleural effusion L>R s/p left thoracentesis - exudative - Await cytology -Repeat CXR Ascites s/p paracentesis -Await cytology Atelectasis - IS CKD stage 4 w/ GFR of 24 - management per primary Recent weight loss of 30lbs in 5wks - CA 125 - >10,000 - midline Ovarian mass see on CT -mining professionals consulted - nodule mass palpated across abdomen just above the naval NIDDMII UTI -Currently on Rocephin Supervisory-Addendum Brief Verification & Attestation Participated in pt care: history Personally performed: exam, history Care discussed with: Medical Student Procedures: n/a Verification and Attestation of Medical Student E/M Service A medical student performed and documented this service in my presence. I reviewed and verified all information documented by the medical student and made modifications to such information, when appropriate. I personally performed the physical exam and medical decision making. Urmila Calvert, Jan 28, 2019,07:34 MADELIN CHERY,MED STUDENT Jan 25, 2019 06:51 URMILA CALVERT DO Jan 25, 2019 07:08
[2019-01-25] MEDS: RT-ADVAIR HFA 45/21 MCG PER PUFF IH SCH ×2 (07:30→18:17)
[2019-01-25] MEDS: FLUTICASONE NASAL SPRAY (FLONASE) 16 GM BTL NS SCH (07:46)
[2019-01-25] MEDS: ATENOLOL 50 MG (TENORMIN) TAB PO SCH (07:46)
[2019-01-25 08:00] VITALS: BP 148/79
--- NOTE | 2019-01-25 08:38 | Diagnostic Imaging Report ---
INDICATION: Shortness of breath. TIME OF EXAMINATION: 8:09 AM. COMPARISON: Correlation is made with the prior chest from one day earlier. FINDINGS: The heart size is normal. There has been some improved aeration in the left perihilar region; however, there appears to be some increasing infiltrate or atelectasis in the left base medially. There is some mild infiltrate or atelectasis developing in the right base as well. The mid and upper lung larose are clear. No effusion is seen. There is no pneumothorax. IMPRESSION: Increasing bibasilar infiltrates or atelectasis when compared with the examination of one day earlier. Dictated by: Dictated on workstation # [id number]
--- NOTE | 2019-01-25 10:35 | Physical Therapy Daily Note ---
PT Daily Note-Current Subjective Patient alert and agrees to PT. Mental Status Patient Orientation: Person, Time, Situation Attachments: Drains, IV Transfers Therapy Code Descriptions/Definitions Functional [place] Measure: 0=Not Assessed/NA 4=Minimal Assistance 1=Total Assistance 5=Supervision or Setup 2=Maximal Assistance 6=Modified [place] 3=Moderate Assistance 7=Complete [place] Therapy Quality Codes: 6 Independent with activity with or without an assistive device 5 Patient requires set up or clean up by helper. Patient completes activity by themselves 4 Supervision or touching assist (CGA). Morgan provide cues , steadying assist 3 The helper provides less than half the effort to complete the activity 2 The helper provides more than half the effort to complete the activity 1 Dependent. The helper does all the effort to complete an activity 7 Patient refused to complete or attempt activity 9 The patient did not perform the activity before the current illness or injury 88 Not attempted due to Medical conditions or safety concerns Transfers (B, C, W/C) (FIM): 7 Scootin Rollin Supine to/from Sit: 7 Sit to/from Stand: 7 Bed to/from Chair: 7 Weight Bearing Right Lower Extremity: Right Weight Bearing/Tolerated Left Lower Extremity: Left Weight Bearing/Tolerated Gait Training Gait (FIM): 5 Distance (FIM): 3=150 ft Distance: 150' Gait Level of Assist: 5 Gait Assistive Device: Cane Small Base Quad improved gait sequence Assessment Patient is up in recliner with chair alarm activated. Patient is improving. PT Jail Goals Lands Resource Manager Goals PT Lands Resource Manager Goals Time Frame: Feb 09, 2019 Transfers (B,C,W/C) (FIM): 6 Gait (FIM): 6 Gait distance (FIM): 3=150 ft Distance: 250' Gait Level of Assist: 6 Gait Assistive Device: FWW, Cane Small Base Quad PT Plan Treatment/Plan Treatment Plan: Continue Plan of Care Treatment Plan: Bed Mobility, Education, Functional Activity Nelsy, Functional Strength, Gait, Safety, Therapeutic Exercise, Transfers Treatment Duration: Feb 09, 2019 Frequency: 6 times per week Estimated Hrs Per Day: .25 hour per day Patient and/or Family Agrees t: Yes Time/GCodes Time In: 845 Time Out: 900 Total Billed Treatment Time: 15 Total Billed Treatment 1 visit FA 15 min TAMMY MCCORMACK PT Jan 25, 2019 10:35
--- NOTE | 2019-01-25 11:09 | NUR ---
provided prayer and Communion.
[2019-01-25 12:00] VITALS: BP 109/72
--- NOTE | 2019-01-25 13:11 | Occupational Ther Daily Note ---
OT Current Status-Daily Note Subjective Pt alert, sitting in recliner. Pt agrees to therapy. Pt is very talkative and required verbal cues to refocus on therapy tasks. Mental Status/Objective Patient Orientation: Person Therapy Code Descriptions/Definitions Functional [place] Measure: 0=Not Assessed/NA 4=Minimal Assistance 1=Total Assistance 5=Supervision or Setup 2=Maximal Assistance 6=Modified [place] 3=Moderate Assistance 7=Complete [place] Attachments: Drains, IV Other Treatment Pt able to don/doff socks by self sitting in recliner. Pt demonstrated good AROM with UE's by completing UE exercises against gravity. After therapy, pt sitting in recliner with call light/phone in reach. All needs met in room. OT Short Term Goals Short Term Goals Upper Body Dressing(FIM): 5 Lower Body Dressing(FIM): 4 1=Demonstrate adherence to instructed precautions during ADL tasks. 2=Patient will verbalize/demonstrate understanding of assistive devices/modifications for ADL. 3=Patient will improve strength/tolerance for activity to enable patient to perform ADL's. OT Green Meat Grader Goals Residential Goals Eating (FIM): 6 Grooming(FIM): 6 Bathing(FIM): 5 Upper Body Dressing(FIM): 6 Lower Body Dressing(FIM): 6 Toileting(FIM): 5 Transfers (B,C,W/C) (FIM): 5 Toilet/Commode Transfer(FIM): 5 Tub Transfer(FIM): 5 Shower Transfer(FIM): 5 Additional Goals: 1-Demonstrate ADL Tasks, 2-Verbalize Understanding, 3- ImproveStrength/Nelsy 1=Demonstrate adherence to instructed precautions during ADL tasks. 2=Patient will verbalize/demonstrate understanding of assistive devices/modifications for ADL. 3=Patient will improve strength/tolerance for activity to enable patient to perform ADL's. OT Education/Plan Problem List/Assessment Assessment: Decreased UE Strength, Impaired Self-Care Skills Discharge Recommendations Plan/Recommendations: Continue POC Treatment Plan/Plan of Care Patient would benefit from OT for education, treatment and training to promote independence in ADL's, mobility, safety and/or upper extremity function for ADL's. Treatment Duration: Jan 31, 2019 Frequency: 5 times per week Estimated Hrs Per Day: .25 hour per day Agreement: Yes Rehab Potential: Fair Time/GCodes Start Time: 12:45 Stop Time: 15:00 Total Time Billed (hr/min): 15 Billed Treatment Time 1 visit-FA 1 (15 min) MAURI BENSON Jan 25, 2019 13:11
--- NOTE | 2019-01-25 15:54 | NUR ---
CM/SS talked with patient to discuss the next steps after discharge. The patients was not in the room during the discussion. The patients states that she is worried about her because he recently fell after dialysis. CM/SS asked the patient if she had a preferred place to go either assisted facility or assisted living. The patient stated that she would probably want to go to [facility] after discharge for skilled. The patient seemed to comprehend what was discussed. CM/SS tried calling [facility] but did not get an answer. Will continue to follow. Addendum: 01/25/19 at 1604 by PAULINE MONTALVO reviewed and approved by Whitney Contreras LMSW
[2019-01-25 16:00] VITALS: BP 130/77
[2019-01-25] MEDS: NS IV 1000 ML 1,000 ML IV SCH (16:13)
[2019-01-25] MEDS: cefTRIAXone 1,000 MG/SWFI 10 ML IV PUSH IV SCH ×2 (16:13)
--- NOTE | 2019-01-25 19:57 | Progress Note - Hospitalist ---
Subjective HPI/CC On Admission Date Seen by Provider: Jan 25, 2019 Time Seen by Provider: 09:00 Pt is a 73yoCF with a PMH CKD Stage 4, HTN. and NIDDMII who presented to the ER due to weakness and dehydration from Dr Corado's office. She is a poor historian and knows that she is in the hospital but not able to tell me many other details. I did speak with her PCP yesterday who states that her has just returned home after a lengthy 6 month hospital and patient's health in that time has deteriorated. She has lost over 30lbs (most of that being in the last 5 weeks) and was delusional in his office yesterday. She appeared clinically dry and was referred to the ER for evaluation. She was found to have a UTI on arrival to the ER and due eto abdominal pain a CT of her abdomen was ordered which revealed large volume ascites and an ovarian mass concerning for neoplasm. She was also noted to have bilateral pleural effusions L>R. She was admitted and paracentesis was done yesterday evening by Dr Jerry. This morning Dr Calvert plan to do a thoracentesis. I attempted to discuss the concerns about the ovarian mass with the patient and she responded by sayings she knew she had a mass but "I'm done having babies so never worried about it." She states she was informed of this by her manager disaster recovery at [place]. Subjective/Events-last exam Pt reports feeling well. No pain. Breathing improved. Still seems confused and quite garrulous. Focused Exam Lactate Level 01/23/19 14:25: Lactic Acid Level 1.71 Objective Exam Vital Signs Vital Signs Date Time Temp Pulse Resp B/P (MAP) Pulse Ox O2 Delivery O2 Flow Rate FiO2 01/25/19 18:17 96 Room Air 01/25/19 16:00 36.5 79 18 130/77 (94) Capillary Refill : Less Than 3 SecondsLess Than 3 Seconds General Appearance: No Apparent Distress, Chronically ill, Thin Respiratory: Lungs Clear, No Respiratory Distress Cardiovascular: Regular Rate, Rhythm, No Murmur Neurologic/Psychiatric: Alert, Other (oriented to person and at times place but not situation) Results/Procedures Lab Patient resulted labs reviewed. Imaging: Reviewed Imaging Films, Reviewed Imaging Report Assessment/Plan Assessment and Plan Assess & Plan/Chief Complaint UTI No evidence of sepsis continue rocephin Cultures reveal GBS Ovarian Mass Ca-125 >10k Concern for neoplasm, Discussed with Dr Angel and Dr Montiel who will see in consultation Cytology sent off fluid Ascites s/p thoracentesis 4L removed on day of admission Dr Jerry consulted, appreciate recs Bilateral Pleural Effusion s/p thoracentesis 01/24- 1.5L removed- cytology sent Dr Calvert consulted, appreciate recs On room air CKD At baseline HTN Atenolol IDDMII Blood sugars well controlled- trend Hold home insulin as BS ~130 SSI ordered Ppx Reg diet SCDs (hold Lovenox today as blood fluid from thoracentesis noted) NS @30cc/hr Diagnosis/Problems Diagnosis/Problems (1) Essential (primary) hypertension Status: Chronic (2) Insulin dependent diabetes mellitus Status: Chronic (3) Ovarian mass Status: Acute (4) Bilateral pleural effusion Status: Acute (5) Ascites Status: Acute Qualifiers: Ascites type: other type Qualified Codes: R18.8 - Other ascites (6) Urinary tract infection Status: Acute Qualifiers: Urinary tract infection type: acute cystitis Hematuria presence: without hematuria Qualified Codes: N30.00 - Acute cystitis without hematuria (7) Hypokalemia Status: Acute Clinical Quality Measures DVT/VTE Risk/Contraindication: Risk Factor Score Per Nursin RFS Level Per Nursing on Admit: 4+=Very High Other: HAS DOCUMENTED IN HER NOTES REASON FOR CONTRAINDICATION R/T BLOODY FLUID FROM DRAINS GIOVANNY PINEDO MD Jan 25, 2019 19:57
[2019-01-25 19:59] VITALS: BP 135/75
[2019-01-25] MEDS: SIMvastatin 10 MG (ZOCOR) TAB PO SCH (20:39)
[2019-01-26] VITALS (7 sets, daily range): BP systolic 90–161; BP diastolic 64–87
[2019-01-26] MEDS: NS IV 1000 ML 1,000 ML IV SCH (02:04)
[2019-01-26 05:59] LABS: HEMOGLOBIN 12.5 G/DL (11.5-16.0); MEAN PLATELET VOLUME 10.5 FL (7.4-10.4); RED CELL DISTRIBUTION WIDTH 15.7 % (10.0-14.5); WHITE BLOOD COUNT 6.6 10^3/uL (4.3-11.0)
[2019-01-26] MEDS: inSUlin ASPART (NovoLOG) 1 UNIT/0.01 ML (CHARGE PER UNIT) SC SCH ×4 (06:13→19:30)
[2019-01-26 06:19] LABS: CALCIUM 8.6 MG/DL (8.5-10.1); CREATININE SERUM 1.92 MG/DL (0.60-1.30); POTASSIUM 3.6 MMOL/L (3.6-5.0)
[2019-01-26] MEDS: ATENOLOL 50 MG (TENORMIN) TAB PO SCH (09:02)
[2019-01-26] MEDS: FLUTICASONE NASAL SPRAY (FLONASE) 16 GM BTL NS SCH (09:40)
--- NOTE | 2019-01-26 10:22 | Pulmonary Progress Note ---
Subjective Time Seen by a Provider: 10:22 Subjective/Events-last exam PT is doing better. She is only requiring RA oxygen Sepsis Event Evaluation Height, Weight, BMI Height: 5'3.00" Weight: 146lbs. 9.0oz. 66.182421hs; 24.74 BMI Method:Stated Focused Exam Lactate Level 01/23/19 14:25: Lactic Acid Level 1.71 Exam Exam Vital Signs Date Time Temp Pulse Resp B/P (MAP) Pulse Ox O2 Delivery O2 Flow Rate FiO2 01/26/19 09:00 Room Air 01/26/19 07:58 36.9 69 16 90/64 (73) 97 Room Air 01/26/19 04:00 36.6 67 16 161/87 (111) 97 Room Air 01/26/19 00:00 36.5 71 12 150/78 (102) 98 Room Air 01/25/19 19:59 36.9 66 20 135/75 (95) 98 Room Air 01/25/19 19:30 Room Air 01/25/19 18:17 96 Room Air 01/25/19 16:00 36.5 79 18 130/77 (94) 98 Room Air 01/25/19 12:00 37.2 70 20 109/72 (84) 98 Room Air I & O 01/26/19 07:00 Intake Total 1950 ml Output Total 800 ml Balance 1150 ml Height & Weight Height: 5'3.00" Weight: 146lbs. 9.0oz. 66.150512bp; 24.74 BMI Method:Stated General Appearance: No Apparent Distress, Chronically ill, Thin HEENT: Moist Mucous Membranes; No Scleral Icterus (L), No Scleral Icterus (R) Neck: Normal Inspection, Supple; No Thyromegaly Respiratory: Lungs Clear, No Respiratory Distress Cardiovascular: Regular Rate, Rhythm, No Murmur Capillary Refill: Less Than 3 Seconds Peripheral Pulses: 2+ Dorsalis Pedis (R), 2+ Left Dors-Pedis (L), 2+ Radial Pulses (R), 2+ Radial Pulses (L) Gastrointestinal: no pulsatile mass, tenderness (RUQ ), mass (hard nodular texture across breadth abdomen) Extremity: No Calf Tenderness, No Pedal Edema Neurologic/Psychiatric: Alert, Other (oriented to person and at times place but not situation) Skin: Normal Color, Warm/Dry Lymphatic: Other (possible L supraclavicle node enlagement ) Results Lab Laboratory Tests 01/26/19 05:15 Assessment/Plan Assessment/Plan B/l pleural effusion L>R s/p left thoracentesis - exudative - Await cytology Ascites s/p paracentesis -Await cytology Atelectasis - IS CKD stage 4 w/ GFR of 24 - management per primary Recent weight loss of 30lbs in 5wks - CA 125 - >10,000 - midline Ovarian mass see on CT -naval aircrewman consulted NIDDMII UTI -Currently on URMILA Tee DO Jan 26, 2019 10:22
--- NOTE | 2019-01-26 10:42 | Progress Note - Hospitalist ---
Subjective HPI/CC On Admission Date Seen by Provider: Jan 26, 2019 Time Seen by Provider: 10:41 Pt is a 73yoCF with a PMH CKD Stage 4, HTN. and NIDDMII who presented to the ER due to weakness and dehydration from Dr Corado's office. She is a poor historian and knows that she is in the hospital but not able to tell me many other details. I did speak with her PCP yesterday who states that her has just returned home after a lengthy 6 month hospital and patient's health in that time has deteriorated. She has lost over 30lbs (most of that being in the last 5 weeks) and was delusional in his office yesterday. She appeared clinically dry and was referred to the ER for evaluation. She was found to have a UTI on arrival to the ER and due eto abdominal pain a CT of her abdomen was ordered which revealed large volume ascites and an ovarian mass concerning for neoplasm. She was also noted to have bilateral pleural effusions L>R. She was admitted and paracentesis was done yesterday evening by Dr Jerry. This morning Dr Calvert plan to do a thoracentesis. I attempted to discuss the concerns about the ovarian mass with the patient and she responded by sayings she knew she had a mass but "I'm done having babies so never worried about it." She states she was informed of this by her litigator at [place]. Subjective/Events-last exam Pt reports feeling well. Eating well. Has some mild neck pain from her sleeping position but no other concerns. When asked if she remember what we had talked about yesterday and what Dr Angel had talked to her about yesterday she was able to recall that we are concerned for cancer. She otherwise was tangential in her thought process. Focused Exam Lactate Level 01/23/19 14:25: Lactic Acid Level 1.71 Objective Exam Vital Signs Vital Signs Date Time Temp Pulse Resp B/P (MAP) Pulse Ox O2 Delivery O2 Flow Rate FiO2 01/26/19 09:00 Room Air 01/26/19 07:58 36.9 69 16 90/64 (73) 97 Capillary Refill : Less Than 3 SecondsLess Than 3 Seconds General Appearance: No Apparent Distress, Chronically ill, Thin Respiratory: Lungs Clear, No Respiratory Distress Cardiovascular: Regular Rate, Rhythm, No Murmur Extremity: No Calf Tenderness, No Pedal Edema Neurologic/Psychiatric: Alert, Other (appears oriented to person and place, at times situation) Results/Procedures Lab Laboratory Tests 01/26/19 05:15 Patient resulted labs reviewed. Imaging: Reviewed Imaging Films, Reviewed Imaging Report Assessment/Plan Assessment and Plan Assess & Plan/Chief Complaint UTI No evidence of sepsis continue rocephin- will finish today Cultures reveal GBS Ovarian Mass Ca-125 >10k Very likely neoplasm, Discussed with Dr Angel and Dr Montiel who will see in consultation Cytology sent from fluid- concern for malignant effusions Ascites s/p thoracentesis 4L removed on 01/23 Dr Jerry consulted, appreciate recs Bilateral Pleural Effusion s/p thoracentesis 01/24- 1.5L removed- cytology sent Dr Calvert consulted, appreciate recs On room air CKD At baseline HTN Atenolol IDDMII Blood sugars well controlled- trend Hold home insulin as BS ~130 SSI ordered Ppx Reg diet Saline lock Lovenox Diagnosis/Problems Diagnosis/Problems (1) Essential (primary) hypertension Status: Chronic (2) Insulin dependent diabetes mellitus Status: Chronic (3) Ovarian mass Status: Acute (4) Bilateral pleural effusion Status: Acute (5) Ascites Status: Acute Qualifiers: Ascites type: other type Qualified Codes: R18.8 - Other ascites (6) Urinary tract infection Status: Acute Qualifiers: Urinary tract infection type: acute cystitis Hematuria presence: without hematuria Qualified Codes: N30.00 - Acute cystitis without hematuria (7) Hypokalemia Status: Acute Clinical Quality Measures DVT/VTE Risk/Contraindication: Risk Factor Score Per Nursin RFS Level Per Nursing on Admit: 4+=Very High Other: HAS DOCUMENTED IN HER NOTES REASON FOR CONTRAINDICATION R/T BLOODY FLUID FROM DRAINS GIOVANNY PINEDO MD Jan 26, 2019 10:42
--- NOTE | 2019-01-26 10:53 | Physical Therapy Daily Note ---
PT Daily Note-Current Subjective Pt. in bed and agrees to therapy. She has no complaints. Mental Status Patient Orientation: Person Attachments: Mcpherson Catheter, IV Transfers Therapy Code Descriptions/Definitions Functional [place] Measure: 0=Not Assessed/NA 4=Minimal Assistance 1=Total Assistance 5=Supervision or Setup 2=Maximal Assistance 6=Modified [place] 3=Moderate Assistance 7=Complete [place] Therapy Quality Codes: 6 Independent with activity with or without an assistive device 5 Patient requires set up or clean up by helper. Patient completes activity by themselves 4 Supervision or touching assist (CGA). [place] provide cues , steadying assist 3 The helper provides less than half the effort to complete the activity 2 The helper provides more than half the effort to complete the activity 1 Dependent. The helper does all the effort to complete an activity 7 Patient refused to complete or attempt activity 9 The patient did not perform the activity before the current illness or injury 88 Not attempted due to Medical conditions or safety concerns Transfers (B, C, W/C) (FIM): 4 Supine to/from Sit: 5 Sit to/from Stand: 4 Weight Bearing Right Lower Extremity: Right Weight Bearing/Tolerated Left Lower Extremity: Left Weight Bearing/Tolerated Gait Training Gait (FIM): 2 Distance (FIM): 6=940-98 ft Distance: 100 ft Gait Level of Assist: 4 Gait Persons Needed: 1 Gait Assistive Device: Cane Small Base Quad narrow NURIA and somewhat unsteady during ambulation Treatments gait, transfers Assessment Current Status: Good Progress Pt. is very talkative during session and somewhat difficult to keep on task. Pt. had no ginger LOB during ambulation but was somewhat unsteady. Pt. returned to bedside chair post session with all needs met, chair alarm on. PT Retirement Goals Welder Repair Goals PT Welder Repair Goals Time Frame: Feb 09, 2019 Transfers (B,C,W/C) (FIM): 6 Gait (FIM): 6 Gait distance (FIM): 3=150 ft Distance: 250' Gait Level of Assist: 6 Gait Assistive Device: FWW, Cane Small Base Quad PT Plan Treatment/Plan Treatment Plan: Continue Plan of Care Treatment Plan: Bed Mobility, Education, Functional Activity Nelsy, Functional Strength, Gait, Safety, Therapeutic Exercise, Transfers Treatment Duration: Feb 09, 2019 Frequency: 6 times per week Estimated Hrs Per Day: .25 hour per day Patient and/or Family Agrees t: Yes Time/GCodes Time In: 850 Time Out: 903 Total Billed Treatment Time: 13 Total Billed Treatment 1, GT 13' TATA BEJARANO PT Jan 26, 2019 10:53
--- NOTE | 2019-01-26 10:55 | Physical Therapy Progress Note ---
Therapy Progress Note Pt. refused PT x2 this date. Initially patient wanted to wait until he had breakfast, and on second attempt he declined ambulation due to SOB and CPAP in place. Nursing notified of refusals, will return 01/28. 1020 TATA BEJARANO PT Jan 26, 2019 10:55
[2019-01-26] MEDS: ENOXAPARIN 30 MG/0.3 ML (LOVENOX) SYR SC SCH (11:35)
--- NOTE | 2019-01-26 14:53 | NUR ---
Pt found to have thoracentisis drain out. Dr. Barney notified. No new orders at this time.
[2019-01-26] MEDS: RT-ADVAIR HFA 45/21 MCG PER PUFF IH SCH ×2 (16:00→19:16)
[2019-01-26] MEDS: cefTRIAXone 1,000 MG/SWFI 10 ML IV PUSH IV SCH ×2 (16:30)
[2019-01-26] MEDS ORDERED: ANTACID SUSP 30 ML UDC (MYLANTA) PO PRN (20:15)
[2019-01-26] MEDS ORDERED: ONDANSETRON 4 MG/2 ML (SDV) Z0FRAN IV PRN (20:15)
[2019-01-26] MEDS ORDERED: MILK OF MAGNESIA 400 MG/5 ML 30 ML UDC PO PRN (20:15)
[2019-01-26] MEDS ORDERED: MELATONIN 3 MG TABLET PO PRN (20:15)
[2019-01-26] MEDS ORDERED: BISACODYL 10 MG SUPP (DULCOLAX) PR PRN (20:15)
[2019-01-26] MEDS ORDERED: ACETAMINOPHEN 325 MG TABLET PO PRN (20:15)
[2019-01-26] MEDS ORDERED: ACETAMINOPHEN 325 MG SUPP (TYLENOL) ONE (20:20)
[2019-01-26] MEDS ORDERED: ACETAMINOPHEN 325 MG TABLET ONE (20:21)
[2019-01-26] MEDS: SIMvastatin 10 MG (ZOCOR) TAB PO SCH (20:23)
[2019-01-27] MEDS: inSUlin ASPART (NovoLOG) 1 UNIT/0.01 ML (CHARGE PER UNIT) SC SCH ×4 (06:04→21:10)
[2019-01-27] MEDS: RT-ADVAIR HFA 45/21 MCG PER PUFF IH SCH ×2 (07:40→18:10)
[2019-01-27 07:51] VITALS: BP 120/70
--- NOTE | 2019-01-27 07:54 | Pulmonary Progress Note ---
Subjective Time Seen by a Provider: 07:54 Subjective/Events-last exam PT is doing well . NO complications noted. Sepsis Event Evaluation Height, Weight, BMI Height: 5'3.00" Weight: 146lbs. 9.0oz. 66.444237fr; 24.74 BMI Method:Stated Exam Exam Vital Signs Date Time Temp Pulse Resp B/P (MAP) Pulse Ox O2 Delivery O2 Flow Rate FiO2 01/27/19 07:40 94 Room Air 01/26/19 23:23 36.6 67 18 132/87 (102) 98 Room Air 01/26/19 20:00 37.5 70 18 129/71 (90) 96 01/26/19 20:00 Room Air 01/26/19 19:16 95 Room Air 01/26/19 16:00 36.7 68 20 107/68 (81) 94 Room Air 01/26/19 11:46 36.5 61 16 122/75 (91) 92 Room Air 01/26/19 09:00 Room Air 01/26/19 07:58 36.9 69 16 90/64 (73) 97 Room Air I & O 01/27/19 07:00 Intake Total 1060 ml Output Total 0 ml Balance 1060 ml Height & Weight Height: 5'3.00" Weight: 146lbs. 9.0oz. 66.621818rl; 24.74 BMI Method:Stated General Appearance: No Apparent Distress, Chronically ill, Thin HEENT: Moist Mucous Membranes; No Scleral Icterus (L), No Scleral Icterus (R) Neck: Normal Inspection, Supple; No Thyromegaly Respiratory: Lungs Clear, No Accessory Muscle Use, No Respiratory Distress Cardiovascular: Regular Rate, Rhythm, No Murmur Capillary Refill: Less Than 3 Seconds Peripheral Pulses: 2+ Dorsalis Pedis (R), 2+ Left Dors-Pedis (L), 2+ Radial Pulses (R), 2+ Radial Pulses (L) Gastrointestinal: no pulsatile mass, tenderness (RUQ ), mass (hard nodular texture across breadth abdomen) Extremity: No Calf Tenderness, No Pedal Edema Neurologic/Psychiatric: Alert, Other (oriented to person, pleasantly confused) Skin: Normal Color, Warm/Dry Lymphatic: Other (possible L supraclavicle node enlagement ) Results Lab Laboratory Tests 01/26/19 05:15 Assessment/Plan Assessment/Plan B/l pleural effusion L>R s/p left thoracentesis - exudative - Await cytology Ascites s/p paracentesis -Await cytology Atelectasis - IS CKD stage 4 w/ GFR of 24 - management per primary Recent weight loss of 30lbs in 5wks - CA 125 - >10,000 - midline Ovarian mass see on CT -manager sales support consulted NIDDMII UTI -Currently on URMILA Tee DO Jan 27, 2019 07:54
[2019-01-27] MEDS: ATENOLOL 50 MG (TENORMIN) TAB PO SCH (08:53)
[2019-01-27] MEDS: ENOXAPARIN 30 MG/0.3 ML (LOVENOX) SYR SC SCH (08:54)
[2019-01-27] MEDS: FLUTICASONE NASAL SPRAY (FLONASE) 16 GM BTL NS SCH (08:54)
--- NOTE | 2019-01-27 13:16 | Progress Note - Hospitalist ---
Subjective HPI/CC On Admission Date Seen by Provider: Jan 27, 2019 Time Seen by Provider: 13:13 Pt is a 73yoCF with a PMH CKD Stage 4, HTN. and NIDDMII who presented to the ER due to weakness and dehydration from Dr Corado's office. She is a poor historian and knows that she is in the hospital but not able to tell me many other details. I did speak with her PCP yesterday who states that her has just returned home after a lengthy 6 month hospital and patient's health in that time has deteriorated. She has lost over 30lbs (most of that being in the last 5 weeks) and was delusional in his office yesterday. She appeared clinically dry and was referred to the ER for evaluation. She was found to have a UTI on arrival to the ER and due eto abdominal pain a CT of her abdomen was ordered which revealed large volume ascites and an ovarian mass concerning for neoplasm. She was also noted to have bilateral pleural effusions L>R. She was admitted and paracentesis was done yesterday evening by Dr Jerry. This morning Dr Calvert plan to do a thoracentesis. I attempted to discuss the concerns about the ovarian mass with the patient and she responded by sayings she knew she had a mass but "I'm done having babies so never worried about it." She states she was informed of this by her boat joiner at [place]. Subjective/Events-last exam Pt states she feels well still. No complaints. Family at bedside. She is still quite garrulous and tangential in her thought process but this appears to be her baseline. Objective Exam Vital Signs Vital Signs Date Time Temp Pulse Resp B/P (MAP) Pulse Ox O2 Delivery O2 Flow Rate FiO2 01/27/19 08:00 Room Air 01/27/19 07:51 36.5 60 18 120/70 (87) 98 Capillary Refill : Less Than 3 SecondsLess Than 3 Seconds General Appearance: No Apparent Distress, Chronically ill Respiratory: Lungs Clear, No Respiratory Distress Cardiovascular: Regular Rate, Rhythm, No Murmur Results/Procedures Lab Patient resulted labs reviewed. Imaging: Reviewed Imaging Films, Reviewed Imaging Report Assessment/Plan Assessment and Plan Assess & Plan/Chief Complaint UTI No evidence of sepsis Completed Rocephin await cultures Ovarian Mass Ca-125 p>10k Very likely neoplasm, Discussed with Dr Angel and Dr Montiel who will see in consultation Cytology sent off fluid Ascites sp thoracentesis 4L removed on day of admission Dr Jerry consulted, appreciate recs Bilateral Pleural Effusion s/p thoracentesis per Dr Calvert CKD At baseline HTN Continue home Atenolol IDDMII Blood sugars well controlled- trend Hold home insulin as BS ~130 SSI ordered Ppx Reg diet Lovenox Hep lock Diagnosis/Problems Diagnosis/Problems (1) Essential (primary) hypertension Status: Chronic (2) Insulin dependent diabetes mellitus Status: Chronic (3) Ovarian mass Status: Acute (4) Bilateral pleural effusion Status: Acute (5) Ascites Status: Acute Qualifiers: Ascites type: other type Qualified Codes: R18.8 - Other ascites (6) Urinary tract infection Status: Acute Qualifiers: Urinary tract infection type: acute cystitis Hematuria presence: without hematuria Qualified Codes: N30.00 - Acute cystitis without hematuria (7) Hypokalemia Status: Acute Clinical Quality Measures DVT/VTE Risk/Contraindication: Risk Factor Score Per Nursin RFS Level Per Nursing on Admit: 4+=Very High Other: HAS DOCUMENTED IN HER NOTES REASON FOR CONTRAINDICATION R/T BLOODY FLUID FROM DRAINS GIOVANNY PINEDO MD Jan 27, 2019 13:16
[2019-01-27 16:00] VITALS: BP_SYST 121; BP_SYST 147; BP_DIAS 72; BP_DIAS 77
[2019-01-27] MEDS: SIMvastatin 10 MG (ZOCOR) TAB PO SCH (20:29)
[2019-01-28 00:30] VITALS: BP 132/64
--- NOTE | 2019-01-28 04:41 | NUR ---
0415-pt requesting milk of magnesia, pt states she is have some abd cramping & has not had a bowel movement recently 0425-prn milk of magnesia administered
[2019-01-28] MEDS: inSUlin ASPART (NovoLOG) 1 UNIT/0.01 ML (CHARGE PER UNIT) SC SCH ×3 (05:14→15:09)
[2019-01-28] MEDS: RT-ADVAIR HFA 45/21 MCG PER PUFF IH SCH (07:48)
[2019-01-28 08:00] VITALS: BP 128/60
[2019-01-28 08:25] LABS: CALCIUM 8.7 MG/DL (8.5-10.1); CREATININE SERUM 1.71 MG/DL (0.60-1.30); MAGNESIUM 1.6 MG/DL (1.6-2.4); POTASSIUM 3.8 MMOL/L (3.6-5.0)
--- NOTE | 2019-01-28 09:08 | NUR ---
CM/SS visited with patient and let the patient know that information was sent to [facility] for skilled therapies. The patients was not present in the room but patient states he was here last night. CM/SS tried to get in contact with patients Bill, no answer and call back information was left on a message. CM/SS will let patient know the decision from [facility]. Addendum: 01/28/19 at 0915 by FIFI LEWIS Reviewed / approved
--- NOTE | 2019-01-28 09:37 | NUR ---
provided prayer and Communion.
[2019-01-28] MEDS: ATENOLOL 50 MG (TENORMIN) TAB PO SCH (09:44)
[2019-01-28] MEDS: FLUTICASONE NASAL SPRAY (FLONASE) 16 GM BTL NS SCH (09:44)
[2019-01-28] MEDS: ENOXAPARIN 30 MG/0.3 ML (LOVENOX) SYR SC SCH (09:45)
--- NOTE | 2019-01-28 10:46 | Occupational Ther Daily Note ---
OT Current Status-Daily Note Subjective Pt alert laying in bed. Pt agrees to therapy. Mental Status/Objective Patient Orientation: Person Therapy Code Descriptions/Definitions Functional Barnwell Measure: 0=Not Assessed/NA 4=Minimal Assistance 1=Total Assistance 5=Supervision or Setup 2=Maximal Assistance 6=Modified Barn[place] 3=Moderate Assistance 7=Complete Barn[place] Attachments: IV Other Treatment Pt participated in bed mobility activity by scooting up in bed by self to increase daily functional activity. Pt participated in 5 UE exercise using light resistance theraband 1x 10 reps to increase UE strength. Pt was asked to recall the exercises and was only able to remember 1. Skilled therapist instructions needed for positioning and technique. HEP and theraband left on bedside table. Pt took increased time due to pt being unfocused and needed VC's throughout therapy session to finish reps. Pt laying in bed, call light and phone in reach, all needs met in room. Education OT Patient Education: Home exercise program Teaching Recipient: Patient Teaching Methods: Demonstration, Handout Response to Teaching: Reinforcement Needed OT Short Term Goals Short Term Goals Upper Body Dressing(FIM): 5 Lower Body Dressing(FIM): 4 1=Demonstrate adherence to instructed precautions during ADL tasks. 2=Patient will verbalize/demonstrate understanding of assistive devices/modifications for ADL. 3=Patient will improve strength/tolerance for activity to enable patient to perform ADL's. OT Slice Cutting Machine Operator Goals Slice Cutting Machine Operator Goals Eating (FIM): 6 Grooming(FIM): 6 Bathing(FIM): 5 Upper Body Dressing(FIM): 6 Lower Body Dressing(FIM): 6 Toileting(FIM): 5 Transfers (B,C,W/C) (FIM): 5 Toilet/Commode Transfer(FIM): 5 Tub Transfer(FIM): 5 Shower Transfer(FIM): 5 Additional Goals: 1-Demonstrate ADL Tasks, 2-Verbalize Understanding, 3- ImproveStrength/Nelsy 1=Demonstrate adherence to instructed precautions during ADL tasks. 2=Patient will verbalize/demonstrate understanding of assistive devices/modifications for ADL. 3=Patient will improve strength/tolerance for activity to enable patient to perform ADL's. OT Education/Plan Problem List/Assessment Assessment: Decreased UE Strength Discharge Recommendations Plan/Recommendations: Continue POC Treatment Plan/Plan of Care Patient would benefit from OT for education, treatment and training to promote independence in ADL's, mobility, safety and/or upper extremity function for ADL's. Treatment Duration: Jan 31, 2019 Frequency: 5 times per week Estimated Hrs Per Day: .25 hour per day Agreement: Yes Rehab Potential: Fair Time/GCodes Start Time: 10:20 Stop Time: 10:43 Total Time Billed (hr/min): 23 Billed Treatment Time 1 visit- 1 FA (8 min) EX 1 (15 min) MAURI BENSON Jan 28, 2019 10:46
--- NOTE | 2019-01-28 11:02 | Oncology Consultation ---
Visit Information Visit Information Date of Admission Jan 23, 2019 at 16:57 Attending Physician Cira Friedman MD Admitting Physician Morales Corado DO Chief Complaint Abdominal mass and ascites. Interval History Ms. Dasilva is a 73 year old white female admitted for UTI and SOB. CT scan showed large ovarian mass, large ascites and bilateral pleural effusion, more on the left. She had paracentesis and thoracentesis and drained about 4 liter fluid. Cytology showed adenocarcinoma in both pleural and abdominal fluid. CA 125 was over 10,000. 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 I suggested chemotherapy for her situation. Pt wanted to fight it. "I have grand kids and a great grand kid on the way. I want the chemotherapy treatment." However, her wanted to talk to their children and family about the treatment. I will see her on Monday at [facility] with her other family members. Pt will be discharged to [facility] for rehab today. CT scans: IMPRESSION: 1. There is a large cystic mass with a solid component low in the pelvis near midline. This finding is worrisome for an ovarian neoplasm such as a cystadenocarcinoma. There is also a large amount of ascites and bilateral pleural effusions particularly on the left. 2. There is some associated atelectasis/infiltrate in each lower lobe again more so on the left. 3. There is no acute abnormality noted otherwise. I consulted the patient on: 01/28/19 11:00 Time Seen by Provider: 11:00 Review of Systems Constitutional: no symptoms reported Health Status Allergies Coded Allergies: Penicillins (Unverified Allergy, Unknown, 01/24/19) Home Medications Amlodipine Besylate (Amlodipine Besylate) 10 Mg Tablet, 10 MG PO DAILY, (Reported) Atenolol (Atenolol) 100 Mg Tablet, 100 MG PO DAILY, (Reported) LAST FILLED #90 07-03-18 Biotin (Biotin) 5 Mg Tablet, 5 MG PO DAILY, (Reported) Cholecalciferol (Vitamin D3) (Vitamin D3) 2,000 Unit Capsule, 2,000 UNIT PO DAILY, (Reported) Cyanocobalamin (Vitamin B-12) (Vitamin B-12) 500 Mcg Tab.subl, 1,500 MCG SL DAILY, (Reported) Fluticasone Propionate (Fluticasone Propionate) 16 Gm [place].susp, 2 SPRAYS NS DAILY, (Reported) Fluticasone/Salmeterol (Advair 100-50 Diskus) 1 Each Blst.w.dev, 1 PUFF INH BID, (Reported) Gabapentin (Gabapentin) 100 Mg Capsule, 100 MG PO BID, (Reported) LAST FILLED #60 07-16-18 Ginkgo Biloba (Ginkgo Biloba) 40 Mg Capsule, 80 MG PO DAILY, (Reported) Insulin Aspart (Novolog Flexpen) 300 Units/3 Ml Solution, 5 UNITS SC TIDAC, (Reported) LAST FILLED 08-16-18 Insulin Detemir (Levemir Flextouch) 100 Unit/1 Ml Insuln.pen, 23 UNITS SC HS, (Reported) LAST FILLED 10-29-18 Lovastatin (Lovastatin) 20 Mg Tablet, 20 MG PO HS, (Reported) Turmeric/Turmeric Root Extract (Turmeric 500 mg Capsule) 1 Each Capsule, 450 MG PO DAILY, (Reported) DPP-Vpysyj-Tdbcae Hx Patient Social History Marrital Status: Employed/Student: retired Alcohol Use: Denies Use Recreational Drug Use: No Smoking Status: Never a Smoker 2nd Hand Smoke Exposure: No Recent Foreign Travel: No Contact w/other who traveled: No Recent Infectious Disease Expo: No Recent Hopitalizations: No Physical Abuse Screen: No Sexual Abuse: No Family Medical History Significant Family History: No Pertinent Family Hx Physical Exam Vital Signs Vital Signs - First Documented 01/23/19 14:14 Temp 36.9 Pulse 109 Resp 19 B/P (MAP) 146/88 (107) Pulse Ox 99 O2 Delivery Room Air Capillary Refill : Less Than 3 SecondsLess Than 3 Seconds Height, Weight, BMI Height: 5'3.00" Weight: 146lbs. 9.0oz. [id number]; 24.74 BMI Method:Stated General Appearance: No Apparent Distress HEENT: PERRL/EOMI Neck: Non Tender, Supple Respiratory: No Accessory Muscle Use, No Respiratory Distress Cardiovascular: Regular Rate, Rhythm, No Edema, No JVD Gastrointestinal: Non Tender, Soft, Distended Extremity: Non Tender, No Calf Tenderness Neurologic/Psychiatric: Alert, Oriented x3, Other (However, she has hard time to keep on the topic during the conversation) Data Review Labs Laboratory Tests 01/28/19 07:56 Laboratory Tests 01/25/19 21:01: Glucometer 207H 01/26/19 05:15: Red Cell Distribution Width 15.7H, Platelet Count 418H, Mean Platelet Volume 10.5H, Carbon Dioxide Level 20L, Blood Urea Nitrogen 28H, Creatinine 1.92H, Glucose Level 119H 01/26/19 05:59: Glucometer 118H 01/26/19 09:49: Glucometer 152H 01/26/19 14:42: Glucometer 167H 01/26/19 19:59: Glucometer 158H 01/27/19 05:36: Glucometer 115H 01/27/19 09:38: Glucometer 172H 01/27/19 15:29: Glucometer 237H 01/27/19 21:06: 01/28/19 07:56: Chloride Level 108H, Carbon Dioxide Level 19L, Blood Urea Nitrogen 29H, Creatinine 1.71H 01/28/19 10:30: Glucometer 177H Impression & Plan Impression & Plan IMP: 1. Adenocarcinoma, of the ascites and pleural effusion cytology, immunohistology pending. CA 125 over 10,000. 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 2. ?early dementia 3. s/p recent paracentesis and thoracentesis 4. DM 5. Chronic renal failure, CR baseline 1.7-2.4 over last 4 years. Plan: 1. Pt can be discharged from Hem/Onc point of view. I will see her at the cancer center on next Monday 2pm with her children and to finalize the chemotherapy. 2. If the decision is to start chemotherapy, she will need a port placement at that time. 3. Rehab at the [facility]. Thank you for the consultation ELANA BOYER MD Jan 28, 2019 11:02
--- NOTE | 2019-01-28 11:15 | NUR ---
Important Message from Medicare presented, reviewed, signed and placed in patient chart. Patient voiced no intention to appeal and deny any needs or further questions at this time.
--- NOTE | 2019-01-28 11:20 | Physical Therapy Daily Note ---
PT Daily Note-Current Subjective Patient agrees to PT. Incontinent BM. Mental Status Patient Orientation: Confused Transfers Therapy Code Descriptions/Definitions Functional Stokes Measure: 0=Not Assessed/NA 4=Minimal Assistance 1=Total Assistance 5=Supervision or Setup 2=Maximal Assistance 6=Modified Stokes 3=Moderate Assistance 7=Complete Stokes Therapy Quality Codes: 6 Independent with activity with or without an assistive device 5 Patient requires set up or clean up by helper. Patient completes activity by themselves 4 Supervision or touching assist (CGA). Drummond provide cues , steadying assist 3 The helper provides less than half the effort to complete the activity 2 The helper provides more than half the effort to complete the activity 1 Dependent. The helper does all the effort to complete an activity 7 Patient refused to complete or attempt activity 9 The patient did not perform the activity before the current illness or injury 88 Not attempted due to Medical conditions or safety concerns Transfers (B, C, W/C) (FIM): 5 Scootin Rollin Supine to/from Sit: 6 Sit to/from Stand: 5 Bed to/from Chair: 5 Weight Bearing Right Lower Extremity: Right Weight Bearing/Tolerated Left Lower Extremity: Left Weight Bearing/Tolerated Gait Training Gait (FIM): 5 Distance (FIM): 3=150 ft Distance: 200' Gait Level of Assist: 5 Gait Assistive Device: Cane Small Base Quad very slow, decreased step length and evelyn (requires VC's to remain on task) Assessment Patient is up in recliner with chair alarm activated. Patient tolerated treatment well. PT Ring Packer Goals Prison Goals PT Ring Packer Goals Time Frame: Feb 09, 2019 Transfers (B,C,W/C) (FIM): 6 Gait (FIM): 6 Gait distance (FIM): 3=150 ft Distance: 250' Gait Level of Assist: 6 Gait Assistive Device: FWW, Cane Small Base Quad PT Plan Treatment/Plan Treatment Plan: Continue Plan of Care Treatment Plan: Bed Mobility, Education, Functional Activity Nelsy, Functional Strength, Gait, Safety, Therapeutic Exercise, Transfers Treatment Duration: Feb 09, 2019 Frequency: 6 times per week Estimated Hrs Per Day: .25 hour per day Patient and/or Family Agrees t: Yes Time/GCodes Time In: 1045 Time Out: 1048 Total Billed Treatment Time: 13 Total Billed Treatment 1 visit GT 13 min TAMMY MCCORMACK PT Jan 28, 2019 11:20
--- NOTE | 2019-01-28 12:22 | NUR ---
CM/SS spoke with patient to try and get contact information for her Pardeep. The patients phone was and she states she does not remember his phone number. CM/SS asked if any other family members were in the area that could be contacted. Patient states that her daughter lives out of state and grandchildren are in the [place] area. Will continue to try and get a hold of spouse Pardeep to update on the plan. Via [facility] accepted patient and CM/SS told this to patient. breakfast supervisor time is planned for 2:30 today. Will fax over finalized discharge instructions. Addendum: 01/28/19 at 1306 by FIFI PINA reviewed / approved [facility] time did change to 1630 for oncology to have a family meeting at 1530. RNing and patient updated.
--- NOTE | 2019-01-28 12:47 | NUR ---
Palliative Care RN went in to visit the patient. She is friendly and quite verbal. Has a lot to say but not much went together. Kind of like story "salad" She mentioned that her was going to come in to see her and that he does not know about this diagnosis yet. Patient will be discharged today to new placement at [facility]...she will leave after a planned family meeting at [facility] with Dr. Montiel.
--- NOTE | 2019-01-28 13:17 | Discharge Summary ---
Discharge Summary Reconcile Patient Problems Problems Reviewed?: Yes Hospital Course Hospital Course Date of Admission: Jan 23, 2019 at 16:57 Admission Diagnosis : Ovarian mass Family Physician/Provider: Morales Corado DO Date of Discharge: 01/28/19 Discharge Diagnosis: Metastatic ovarian adenocarcinoma Hospital Course: yRanne Dasilva is a 73yoF who presented with an abdominal mass and was found to have metastatic ovarian adenocarcinoma. She underwent paracentesis which was positive for malignant cells. She also underwent a thoracentesis which revealed malignant cells as well. Oncology and radiation oncology were consulted and evaluated the patient prior to discharge to long-term facility. Labs and Pending Lab Test: Laboratory Tests 01/27/19 15:29: Glucometer 237H 01/27/19 21:06: Glucometer 106 01/28/19 07:56: Sodium Level 138, Potassium Level 3.8, Chloride Level 108H, Carbon Dioxide Level 19L, Anion Gap 11, Blood Urea Nitrogen 29H, Creatinine 1.71H, Estimat Glomerular Filtration Rate 29, BUN/Creatinine Ratio 17, Glucose Level 104, Calcium Level 8.7, Magnesium Level 1.6 01/28/19 10:30: Glucometer 177H Microbiology 01/23/19 Blood Culture - Preliminary, Resulted No growth 01/24/19 Gram Stain - Final, Resulted 01/24/19 Body Fluid Culture - Preliminary, Resulted Culture In Progress 01/23/19 Urine Culture - Final, Complete Strep agalactiae Group B Home Meds Active Reported Turmeric 500 mg Capsule (Turmeric/Turmeric Root Extract) 1 Each Capsule 450 Mg PO DAILY Vitamin D3 (Cholecalciferol (Vitamin D3)) 2,000 Unit Capsule 2,000 Unit PO DAILY Gabapentin 100 Mg Capsule 100 Mg PO BID LAST FILLED #60 07-16-18 Atenolol 100 Mg Tablet 100 Mg PO DAILY LAST FILLED #90 07-03-18 Ginkgo Biloba 40 Mg Capsule 80 Mg PO DAILY Vitamin B-12 (Cyanocobalamin (Vitamin B-12)) 500 Mcg Tab.subl 1,500 Mcg SL DAILY Novolog Flexpen (Insulin Aspart) 300 Units/3 Ml Solution 5 Units SC TIDAC LAST FILLED 08-16-18 Levemir Flextouch (Insulin Detemir) 100 Unit/1 Ml Insuln.pen 23 Units SC HS LAST FILLED 10-29-18 Biotin 5 Mg Tablet 5 Mg PO DAILY Amlodipine Besylate 10 Mg Tablet 10 Mg PO DAILY Lovastatin 20 Mg Tablet 20 Mg PO HS Fluticasone Propionate 16 Gm [place].susp 2 Sprays NS DAILY Advair 100-50 Diskus (Fluticasone/Salmeterol) 1 Each Blst.w.dev 1 Puff INH BID Skilled NF Admit to: [facility] Certification ([facility]) I certify that SNF services are required to be given on an inpatient basis because of the above named patient's need for long-term care on a co ntinuing basis for the conditions(s) for which he/she was receiving inpatient hospital services prior to his/her transfer to the [facility]. Long-Term Facility Order: Nursing Services, Design Director-Evaluate & Treat, Physical Therapy-Evaluate & Treat Oxygen Delivery Method: Room Air Discharge Diet: No Restrictions Daily Activity as Tolerated: Yes Resuscitation Status: Full Code Type of Care: Pallative Care Ivy Bangura Jan 28, 2019 13:10 Discharge Physical Exam General: Alert, Cooperative Lungs: Clear to Auscultation, Normal Air Movement Heart: Regular Rate, No Murmurs Abdomen: Other (left central abdominal mass, firm, nontender) Extremities: No Edema, No Tenderness/Swelling Skin: No Rashes IVY BANGURA MD Jan 28, 2019 13:15
--- NOTE | 2019-01-28 13:41 | NUR ---
CM/SS discharge information sent to [facility]. CARE Assessment faxed to [facility], facility and a copy retained on the chart.
--- NOTE | 2019-01-28 14:30 | NUR ---
BLOOD GLUCOSE NOT DONE PT STILL EATING LUNCH.
--- NOTE | 2019-01-28 15:19 | NUR ---
REPORT CALLED TO YAMILET [facility].
[2019-01-28 16:35] VITALS: BP 111/73
--- NOTE | 2019-01-28 16:35 | NUR ---
TO [facility] WITH [place] PERSONNEL.
== END 2019-01-28 16:35 | DRG 375 ==
LOC: EDUNIT# 13:57 → ER 13:59 → 4TH 16:57
PROVIDERS: ADMIT Family Medicine; ATTEND Family Medicine
PROC: 0W9G3ZX Drainage of Peritoneal Cavity, Percutaneous Approach, Diagnostic (ICD-10-PCS; principal; 2019-01-23)
PROC: 0W9B3ZX Drainage of Left Pleural Cavity, Percutaneous Approach, Diagnostic (ICD-10-PCS; 2019-01-24)
DX: C78.6 Secondary malignant neoplasm of retroperitoneum and peritoneum (principal); C78.01 Secondary malignant neoplasm of right lung; C56.2 Malignant neoplasm of left ovary; J91.0 Malignant pleural effusion; C78.02 Secondary malignant neoplasm of left lung; J98.11 Atelectasis; N30.00 Acute cystitis without hematuria; I12.9 Hypertensive chronic kidney disease with stage 1 through stage 4 chronic kidney disease, or unspecified chronic kidney disease; N18.4 Chronic kidney disease, stage 4 (severe); J44.9 Chronic obstructive pulmonary disease, unspecified; E11.22 Type 2 diabetes mellitus with diabetic chronic kidney disease; Z79.4 Long term (current) use of insulin; E87.6 Hypokalemia
CPT/HCPCS: 36415; 71045; 71250; 74176; 80048; 80053; 81000; 82140; 82945; 82962; 83605; 83615; 83735; 83986; 84157; 85025; 85027; 85610; 85730; 86304; 87040; 87070; 87077; 87088; 87205; 88112; 88305; 89051; 94640; 94760; 96361; 96374

== ENCOUNTER 2019-02-25 14:18 | Outpatient (RCR) | payer MEDICARE, OTHER ==
[~2019-02-25 14:18] MED LIST changes: +AMLO10TA7 PO; +ATEN100T PO; +BIOT5TAB PO; +CHOL20003 PO; +CYAN500T52 SL; +FLUT16SP22 NS; +FLUT1DIS28 INH; +GABA-486 PO; +GINK40CA5 PO; +INSU100I14 SC; +INSU100I29 SC; +LISI-552 PO; +TURM500C4 PO
== END 2019-05-05 | disposition home or self-care (01) ==
LOC: ONC 14:18
PROVIDERS: ATTEND Internal Medicine Hematology & Oncology
DX: C56.2 Malignant neoplasm of left ovary (principal); J45.909 Unspecified asthma, uncomplicated; E11.9 Type 2 diabetes mellitus without complications; J44.9 Chronic obstructive pulmonary disease, unspecified
CPT/HCPCS: 99213